=== PATIENT | male | born 1930 | race Caucasian/White ===

== ENCOUNTER 2017-05-30 19:40 | Inpatient (IN) | payer MEDICARE ==
[~2017-05-30 19:40] MED LIST: ISOVUE-370 76%-LOCM 1 ML ONE
[2017-05-30 21:30] LABS: #Lymphocytes 1.1 thou/uL (1.20-3.40); #Monocytes 0.8 thou/uL (0.11-0.59); #Neutrophils 10.7 thou/uL (1.40-6.50); %Basophils 0.2 % (0.0-1.0); %Eosinophils 0.1 % (0.0-10.0); %Lymphocytes 8.7 % (21.0-51.0); %Monocytes 6.5 % (0.0-10.0); %Neutrophils 84.5 % (42.0-75.0); Hemoglobin 14.2 g/dL (14.0-18.0); Mean Corpuscular HGB CONC 32.1 g/dL (32.0-36.0); Mean Corpuscular Hemoglobin 30.7 pg (27.0-31.0); Mean Corpuscular Volume 95.8 fl (80.0-94.0); Platelet Count 176 thou/uL (130-400); RBC Distribution Width 14.1 % (11.5-14.5); Red Blood Cell (RBC) Count 4.62 mill/uL (4.70-6.10); White Blood Cell (WBC) Count 12.7 thou/uL (4.8-10.8)
--- NOTE | 2017-05-30 21:43 | RAD ---
CHEST TWO VIEWS 05/30/17 COMPARISON: 12/25/08, 09/15/16. HISTORY: Cough. Hemoptysis. FINDINGS: There is a left sided defibrillator, unchanged in position. There are sternotomy wires. There is athe rosclerosis of the aorta. Heart is enlarged. Pulmonary vessels are within normal limits. Lungs are hy perinflated. Chronic changes. No consolidation or mass. No pneumothorax or osseous abnormalities. IMPRESSION: 1. Hyperinflation. Chronic changes. 2. Atherosclerosis. POS: [facility]
[2017-05-30 21:46] LABS: ALT (SGPT) 14 U/L (8-55); AST (SGOT) 9 U/L (5-34); Albumin 4.1 g/dL (3.4-4.8); Alkaline Phosphatase 94 U/L (40-150); Anion Gap 15 mmol/L (10-20); BUN (Urea Nitrogen) 20 mg/dL (8.4-25.7); Bilirubin, Total 1.6 mg/dL (0.2-1.2); Calc. Creatinine Clearance 0 mL/min (70-130); Carbon Dioxide 27 mmol/L (23-31); Chloride 102 mmol/L (98-107); Estimated GFR-MDRD 44; Glucose 112 mg/dL (83-110); Potassium 4.1 mmol/L (3.5-5.1); Protein, Total 7.1 g/dL (5.8-8.1); Sodium 140 mmol/L (136-145)
[2017-05-30 21:50] LABS: CKMB 1.5 ng/mL (0-6.6); Troponin I 0.226 ng/mL (< 0.028)
[2017-05-30] MEDS ORDERED: methylPREDNISolone Sod Succ/PF 125 MG/2 ML VIAL ONE (22:28)
[2017-05-30] MEDS ORDERED: diphenhydrAMINE 50 MG/ML VIAL ONE (22:28)
[2017-05-30] MEDS ORDERED: Famotidine/PF 20 mg/2ml Vial ONE (22:29)
[2017-05-30 23:06] LABS: Bilirubin Small (Negative); Blood, Urine Trace (Negative); Clarity CLEAR (Clear); Glucose, Urine (Dipstick) Negative (Negative); Leukocyte Negative (Negative); Nitrite Negative (Negative); Protein, Urine (Dipstick) Trace mg/dL (Neg-Trace); Specific Gravity, Urine 1.021 (1.002-1.036)
[2017-05-30 23:11] LABS: Bacteria/HPF None Seen HPF (None Seen); Hyaline Casts/LPF 4-6 HYALINE CAST LPF (0-3 Hyaline); Pathc Cast-AUWi Flag 0.54 (0-2.49); Squamous Epithelial 0-3 HPF (0-3); WBC/HPF 0-3 HPF (0-3)
[2017-05-30] MEDS ORDERED: HYDROcodone/Acetaminophen 5/325 mg Tablet ONE (23:34)
--- NOTE | 2017-05-30 23:57 | CT ---
HISTORY: Cough. Dark phlegm. Hemoptysis. COMPARISON: None. TECHNIQUE: CT angiogram of the chest performed in the axial plane. Three dimensional reformatted images are subm itted for interpretation. FINDINGS: Trachea and central bronchi are patent. Small right and small to moderate left pleural effusion. Tia cent lung parenchymal changes due to pneumonia or atelectasis.. Calcified granuloma in the right uppe r lobe is noted. Linear opacities in the right upper lobe represent areas of scarring and atelectasis . . There are opacities adjacent to the minor fissure. Largest opacification measures 1.7 cm. There is a more focal opacity in the left lower lobe, measuring 1.3 x 1.9 cm. Malignant process cannot be e xcluded. Comparison with previous examination would be beneficial. Correlation made with a CT from does not definitively include this area. No mediastinal mass, lymphadenopathy or hematoma. Evaluation of the mediastinal structures is limited by beam attenuation artifact due to a left sided defibrillator generator. There are coronary calcifi cations. Heart size is upper normal. There is reflux of contrast into the inferior vena cava due to r ight heart failure. Visualized upper solid organs are unremarkable. Adequate contrast opacification of pulmonary arterial system to the level of the segmental arteries N o filling defect to suggest thromboembolism. No lytic or blastic lesions in the osseous structures. IMPRESSION: 1. No evidence of pulmonary artery embolism to the level of the segmental arteries. 2. Lung parenchymal opacities as above. There is a more focal opacification in the left lower lo be. Infiltrate or mass cannot be excluded. Additional opacities in the middle lobe are present. POS: [facility]
[2017-05-31] MEDS ORDERED: Morphine 4 MG/ML VIAL ONE (00:23)
[2017-05-31] MEDS ORDERED: HYDROcodone/Acetaminophen 7.5/325 mg Tablet PO PRN (00:37)
[2017-05-31] MEDS ORDERED: Ondansetron ODT 4 MG TAB PO PRN ×2 (00:37→18:04)
[2017-05-31 01:39] LABS: Troponin I 0.226 ng/mL (< 0.028)
[2017-05-31 02:59] VITALS: BMI 21.1
[2017-05-31] MEDS ORDERED: Azithromycin 250 MG TAB PO SCH (03:00)
[2017-05-31] MEDS: Cefepime 1 GM, Admixture Fee 1 EACH in Sterile Water 10 ML SLOW IVP SCH ×2 (03:54→15:54)
[2017-05-31] MEDS: Sodium Chloride 0.9% 1,000 ML IV SCH ×3 (03:55→21:18)
[2017-05-31 05:44] LABS: #Lymphocytes 0.8 thou/uL (1.20-3.40); #Monocytes 0.1 thou/uL (0.11-0.59); #Neutrophils 9.8 thou/uL (1.40-6.50); %Basophils 0.3 % (0.0-1.0); %Eosinophils 0.2 % (0.0-10.0); %Lymphocytes 7.4 % (21.0-51.0); %Monocytes 1.3 % (0.0-10.0); %Neutrophils 90.9 % (42.0-75.0); Hemoglobin 13.8 g/dL (14.0-18.0); Mean Corpuscular HGB CONC 31.4 g/dL (32.0-36.0); Mean Corpuscular Hemoglobin 30.3 pg (27.0-31.0); Mean Corpuscular Volume 96.4 fl (80.0-94.0); Mean Platelet Volume 8.3 fL (7.4-10.4); Platelet Count 161 thou/uL (130-400); RBC Distribution Width 14.1 % (11.5-14.5); Red Blood Cell (RBC) Count 4.57 mill/uL (4.70-6.10); White Blood Cell (WBC) Count 10.7 thou/uL (4.8-10.8)
--- NOTE | 2017-05-31 06:04 | HP ---
DATE OF ADMISSION: 05/31/2017 TIME OF SERVICE: 0030 hours. CHIEF COMPLAINT: Coughing up blood. HISTORY OF PRESENT ILLNESS: Mr. Trevino is an 86-year-old white gentleman with history of hypertensio n, chronic low back pain, and arrhythmia, though he does not know which one who presents to the emerg ency department today with complaints of coughing of blood. Patient states that he has had last month or two of clear nasal drainage. Over the last couple of we eks has become darker. He has had several episodes where he has snorted back phlegm and coughed it u p. It has been dark colored. It has gotten darker over the last week and today in nose he has some redness to it. He decided to come to the emergency department for evaluation. He has had some burni ng when he urinates for the last week or so. No fevers or chills, no chest pain, no diarrhea. He is chronically constipated. Patient does have a history of chronic low back pain. Multiple back surgeries in the past. He says he has a bone spur on L5, that caused him to take his hydrocodone at regular intervals. He did miss a dose today and is very uncomfortable at present. He was given morphine sulfate intravenously by [facility] ER doctor. We have been called to admit after CT scan suggested pneumonia versus nodule. PAST MEDICAL HISTORY: 1. Hypertension. 2. Chronic low back pain. 3. Atrial arrhythmia. 4. Probable heart failure. PAST SURGICAL HISTORY: 1. Appendectomy. 2. Neck surgery in the past. 3. Colon resection 18 inches. 4. Pacemaker defibrillator placement. 5. Back surgery x5. HOME MEDICATIONS: 1. Digoxin 0.125 mg p.o. on Sunday, Sunday, and Sunday. 2. Eliquis 2.5 mg p.o. b.i.d. 3. Lasix 40 mg p.o. q.a.m. and every noon. 4. Lorazepam 0.5 mg p.o. p.r.n. 5. Toprol-XL 25 mg daily. 6. MiraLax 17 grams daily. 7. Zofran 4 mg p.o. t.i.d. as needed for nausea. 8. Pantoprazole 40 mg daily. 9. Spironolactone 12.5 mg p.o. daily. 10. Tobramycin 0.3% eyedrops. 11. Hydrocodone q.6 hours, family unsure of the dosage. ALLERGIES: 1. FLOXIN. I am assuming this is OFLOXACIN. 2. IODINE. 3. PENICILLIN back in 1953, was given his intramuscular injection in the service, was told never to take it again as he had to have another medicine to reverse it. 4. PENTAZOCINE/ACETAMINOPHEN, likely the PENTAZOCINE as he takes ACETAMINOPHEN now without problems. FAMILY HISTORY: Negative for clotting or bleeding disorder, no immune dysfunction. SOCIAL HISTORY: Significant for living at the [facility] in [place]. He has negative for habits x 3. He is . His accompanies him. His daughter helps to make medical decisions. Her num bers in the chart. Currently, he wished to be FULL CODE. REVIEW OF SYSTEMS: Ten point review of systems performed and negative for all other systems except s tated as per HPI. PHYSICAL EXAMINATION: VITAL SIGNS: Temperature here is 100.0, pulse 65, blood pressure 136/64, respiratory rate 18, 94% on room air. GENERAL: He is awake. He is alert. He is oriented x3. He is a fidgety thin elderly white male, ap pears to be in no acute distress, but looks uncomfortable. HEENT: Normocephalic and atraumatic. Pupils are equal, reactive bilaterally. Oral membranes are mo ist. He does have dry nasal membranes. I do not see any blood. NECK: Supple. There is no lymphadenopathy, JVD, or thyromegaly. He has normal carotid upstroke. CHEST: Lungs are clear anteriorly. Posteriorly he has some faint basilar crackles that seem to chey r with deep inspiration. He has good air movement. Symmetrical chest excursion. He has no prolonge d expiratory phase. CARDIOVASCULAR: He has a normal cardiac and regular. He has a faint 2-3/6 systolic ejection murmur and a holosystolic murmur. He has a small 2/6 diastolic rumble that is heard at the right upper ster nal border. ABDOMEN: Soft. It is nontender, nondistended. He has good bowel sounds in all 4 quadrants. No deangelo ound, rigidity, or guarding. EXTREMITIES: No cyanosis, no clubbing, no edema. He has a barely palpable dorsalis pedis pulse and nonpalpable posterior tibial. Feet are cool. SKIN: Otherwise, warm, moist, and well perfused without any rashes or lesions. NEUROLOGIC: Cranial nerves II-XII grossly intact, he has no focal deficits, he has normal speech pat tern. Alert and oriented x3. MUSCULOSKELETAL: Normal to inspection. He has no joint inflammation, no palpable effusions. His ba ck is diffusely tender in the lumbar area. He has no deformities. LABORATORY DATA: Sodium 140, potassium 4.1, chloride 102, bicarbonate 27, BUN 20, creatinine 1.51, w hich is at his baseline 1.5 to 1.9. Glucose is 112. Liver functions are normal with the exception o f total bilirubin slightly elevated at 1.6. Total white blood cell count is 12.7 with a normal diffe rential, hemoglobin 14.2, hematocrit 44.3, and platelet count is 176,000. CK-MB is 15, troponin I 0.226, on review this has been in the 0.2 range for the last year. Urinalysi s largely unremarkable. GFR calculated at 44 and a flu test was negative. Chest x-ray showed hyperinflation, but no acute cardiopulmonary disease. A CT angio of the chest marcos wed a small right and a small to moderate left pleural effusion with adjacent atelectasis, right uppe r lobe calcified granuloma, opacities adjacent to the minor fissure, the largest of 1.7 cm and 1.3 x 1.9 left lower lobe opacity. These are consistent with infiltrate and malignancy could not be exclud ed. ASSESSMENT AND PLAN: 1. Hemoptysis: This is not from a lung source. He is sucking that back out of his nasopharynx and spitting it out. We will use humidified air as needed. He is not currently on oxygen. His hemoglob ins are stable. We will watch. 2. Left lower lobe, right parafissure opacities: We will ask Pulmonary to see. Concern is obviousl y malignancy. Patient is not having any overt fevers, he does not have any respiratory issues. I am sure this will be worked up as an outpatient. We will get him plugged in with the lung doctors. 3. Chronic kidney disease 3, GFR of 44 and creatinine 1.5 to 1.9 at baseline. Currently, stable. 4. Possible pneumonia: Now, I think is less likely. He has these nonspecific opacities present. W emil count is slightly elevated at 12.7, he is afebrile with a temperature of 100.0. Watch temperatu re closely. He has gotten OFLOXACIN allergy, he has an old PENICILLIN allergy. I think it is likely not a legitimate, we will treat with cefepime and azithromycin at present so he does live in a long- term assisted living facility and see what pulmonary recommends. Initially, consider sending the pat ient home, however, discussion with the ER doctor, they were concerned about pneumonia to continue to have him admitted. 5. Chronic back pain. We will continue his hydrocodone. We will start him at 7.5 mg q.4 hours and hold for sedation. 6. Hypertension, currently stable. Continue home medications.
[2017-05-31 06:20] LABS: Anion Gap 16 mmol/L (10-20); BUN (Urea Nitrogen) 20 mg/dL (8.4-25.7); Calc. Creatinine Clearance 31 mL/min (70-130); Calcium 9.4 mg/dL (7.8-10.44); Carbon Dioxide 24 mmol/L (23-31); Chloride 102 mmol/L (98-107); Estimated GFR-MDRD 50; Glucose 121 mg/dL (83-110); Potassium 3.9 mmol/L (3.5-5.1); Sodium 138 mmol/L (136-145)
[2017-05-31] MEDS: Famotidine 20 MG TAB PO SCH (08:49)
[2017-05-31] MEDS ORDERED: Cefepime 1 GM in Sodium Chloride 0.9% 100 ML IVPB SCH (09:00)
[2017-05-31] MEDS: HYDROcodone/Acetaminophen 7.5/325 mg Tablet PO PRN (17:49)
[2017-05-31] MEDS ORDERED: traMADol HCl 50 MG TAB PO PRN (18:04)
[2017-05-31 19:43] LABS: Troponin I 0.243 ng/mL (< 0.028)
[2017-05-31] MEDS ORDERED: Atorvastatin Calcium 20 MG TAB PO SCH (21:00)
[2017-05-31] MEDS: Lorazepam 1 MG TAB PO SCH (21:19)
[2017-05-31] MEDS: Polyethylene Glycol 3350 17 GM Packet PO SCH (21:19)
[2017-05-31] MEDS: Furosemide 40 MG TAB PO SCH (21:19)
[2017-05-31] MEDS: Cefdinir 300 MG CAP PO SCH (21:19)
[2017-05-31] MEDS: Mirtazapine 15 MG TAB PO SCH (21:20)
[2017-05-31] MEDS: HYDROcodone/Acetaminophen 10/325 mg Tablet PO SCH (21:20)
--- NOTE | 2017-06-01 01:47 | CON ---
DATE OF CONSULTATION: 05/31/2017 Mr. Trevino is a gentleman who has a history of mitral regurgitation, left atrial enlargement, and aortic insufficiency. He gives a fairly tangential history, but presents with sinus drainage and hemoptysis. He feels this sinus drainage is leading to the hemoptysis. He wanted an emergency room evaluation since he lives in an assisted living environment. He says he is not sure he gets the medicine he is supposed to get , so he was transferred here and admitted. PAST MEDICAL HISTORY: Remarkable for hypertension, chronic pain, which he is very fixated on and talks about his pain medicine continuously during the interview; history of valvular heart disease. PAST SURGICAL HISTORY: 1. History of an appendectomy. 2. History of neck surgery. 3. History of colon surgery. 4. History of placement of an AICD. 5. History of multiple back surgeries. He is on Eliquis, digoxin, Lasix, lorazepam, Toprol, MiraLax, Zofran, Protonix, spironolactone, and hydrocodone. He reports allergies to QUINOLONES, IODINE, PENICILLIN and PENTAZOCINE reportedly. FAMILY HISTORY: Negative for lung disease at an early age. SOCIAL HISTORY: Denies smoking. He said he very briefly smoked earlier in his life, did not drink. Has no drug history. REVIEW OF SYSTEMS: Otherwise, 10-point negative. He denies specifically chest pain, orthopnea, paroxysmal nocturnal dyspnea, had no diarrhea with this illness. He says his sinus drainage has been going on for several weeks. PHYSICAL EXAMINATION: VITAL SIGNS: He is afebrile, heart rate 66, respiratory rate 16, oximetry is 94 %. Blood pressure 137/69. HEENT: Pupils are reactive. Sclerae is anicteric. NECK: Supple, no lymphadenopathy. LUNGS: Remarkable for clear breath sounds. HEART: Regular rhythm. S1 and S2 are normal. He has a grade 3/6 systolic precordial murmur. His murmurs are less intense in his right upper sternal border. ABDOMEN: Soft and nontender. He has no guarding. He has no organomegaly. EXTREMITIES: Without asymmetry. LABORATORY DATA: White count 10.7, hemoglobin 13.8, platelets 161. Sodium 138 , potassium 3.9, chloride 102, bicarb 24, BUN 20, creatinine 1.35. I reviewed his chest radiographs and his chest CT. I believe he has fluid in is minor fissure. He has bibasilar atelectasis adjacent to right greater than left pleural effusion. IMPRESSION: 1. Probable chronic congestive heart failure secondary to valvular heart disease. 2. Sinusitis versus rhinitis with hemoptysis. 3. Deconditioning. PLAN: I would provide antimicrobial therapy. I would consult Cardiology since he is followed by Dr. Haq here in town. I think a repeat echocardiogram just to reassess his valvular function just mainly to notify family of his condition is reasonable. I do not think that he should be a full code at 86 years of age with valvular heart disease, but he is. As we collect the information, this can be addressed. I have discussed the above with the staffing administrator patient relations liaison. This is a 50-minute consultation, greater than 50% of the time was spent reviewing available old records, reviewing radiographs and consulting with the staff planning care. ZAC
[2017-06-01] MEDS: Calcium Carbonate + Vit D 1 TAB PO SCH (08:14)
[2017-06-01] MEDS: Famotidine 20 MG TAB PO SCH (08:15)
[2017-06-01] MEDS: Amiodarone 200 MG TAB PO SCH (08:15)
[2017-06-01] MEDS: Furosemide 40 MG TAB PO SCH (08:15)
[2017-06-01] MEDS: Cefdinir 300 MG CAP PO SCH ×2 (08:16→21:04)
[2017-06-01] MEDS: HYDROcodone/Acetaminophen 10/325 mg Tablet PO SCH ×4 (08:25→21:05)
[2017-06-01] MEDS: Sodium Chloride 0.9% 1,000 ML IV SCH (08:28)
[2017-06-01] MEDS ORDERED: Azithromycin 250 MG TAB PO SCH (09:00)
[2017-06-01] MEDS ORDERED: Digoxin 0.125 MG TAB PO SCH (09:00)
--- NOTE | 2017-06-01 09:29 | PRG ---
DATE OF SERVICE: 06/01/2017 SUBJECTIVE: The patient seen and examined at the bedside. He wants to go home. He talks a lot abou t his medications, his hydrocodone. He is not taking his hydrocodone for the last 3 days like he is supposed to, although he is using hydrocodone in the hospital as we speak. He is very fixated on his medications issue. OBJECTIVE: VITAL SIGNS: Blood pressure is 164/78, pulse is 61, respiratory rate is 16, O2 saturation is 91% on 3 liters by nasal cannula. HEENT: His head is atraumatic, normocephalic. Eyes are PERRLA, conjunctivae pinkish. Oral mucosa i s moist. NECK: Supple. LUNGS: Breath sounds diminished at both bases. CARDIOVASCULAR: S1, S2 normal, no S3, S4, defibrillator in place. ABDOMEN: Soft, nontender, nondistended. EXTREMITIES: No clubbing, cyanosis or edema. NEUROLOGIC: He is alert and oriented x4. There is not any sensory or motor deficits. Cranial nerve s are intact. LABORATORY DATA: Showed BNP of 1738.9. IMPRESSION: 1. Hemoptysis. Most likely related to his sinus versus rhinitis per Dr. Duran. His cefepime was sw itched to Omnicef and he is continued on azithromycin. 2. Hypoxemia with respiratory distress on exertion, most likely congestive heart failure. We are go ing to switch his Lasix to IV 40 mg q.12h. We will stop his fluids. His BNP is elevated. We will tr y to diurese him. 3. Hypertension, chronic. The patient is back on his home meds. 4. Defibrillator. PLAN: Plan is as mentioned above, Cardiology consultation was requested by career technology teacher since his t roponin is up to 0.2. This could be a demand ischemia or non-STEMI. The patient is getting beta blo cker, metoprolol 12.5 mg twice a day. Will start him on aspirin 325 mg daily. He had echocardiogram done this morning, will have results later today. We will continue him on amiodarone he was taking at home, the same dose 200 mg daily, and we will continue digoxin. We will obtain more information f rom Dr. James since the patient is established with Dr. Haq as the primary Cardiology Service.
[2017-06-01] MEDS ORDERED: Furosemide 40 MG/4 ML VIAL SLOW IVP SCH (10:00)
--- NOTE | 2017-06-01 12:24 | PRG ---
DATE OF SERVICE: 06/01/2017 Mr. Trevino is stable overnight. He is in no distress. He is oriented x2. PHYSICAL EXAMINATION: VITAL SIGNS: He is afebrile, heart rate 61, respiratory rate 16, oximetry is 91 on 3 liters, blood p ressure 164/78. His echocardiogram is pending. LUNGS: Remarkable for decreased breath sounds at both bases. CARDIOVASCULAR: Regular rhythm. ABDOMEN: Soft. IMPRESSION: 1. Valvular heart disease, accounting for the majority of his radiographic findings. 2. ? Pneumonia. I suspect he does not have a pneumonia. It would not be unreasonable to switch hi m to p.o. antimicrobial therapy at this point. I have discontinued his IV azithromycin. I doubt thi s is an atypical pneumonia. We will continue to follow.
--- NOTE | 2017-06-01 14:05 | CON ---
DATE OF CONSULTATION: 06/01/2017 HISTORY OF PRESENT ILLNESS: The patient is an 86-year-old gentleman who presented with dyspnea and a sinus infection. The patient has a long history of ischemic cardiomyopathy. He underwent coronary bypass graft surgery x4 in 2002. He also had subsequent placement of automatic implantable cardiac defibrillator. The patient also has a history of atrial fibrillation/flutter and is on chronic anticoagulation therapy. The patient also has had difficulty with blood pressure medications and has a history of orthostatic hypotension. The patient states for the past few months he has had difficulty with back pain and with adjustments of his pain medication. He also has noted a slight increase in dyspnea and primarily has noted sinus drainage which is sometimes blood tinged. The patient denies having any chest discomfort. The patient denies having any PND or orthopnea. PAST MEDICAL HISTORY: 1. Ischemic cardiomyopathy. 2. History of atrial fibrillation/flutter. 3. History of renal insufficiency. 4. Chronic back pain. PAST SURGICAL HISTORY:Hernia repair, vasectomy, cholecystectomy, coronary bypass graft surgery and prostate surgery. SOCIAL HISTORY: Nonsmoker. MEDICATIONS: See nursing list. ALLERGIES: PENICILLIN, FLOXIN, IODINE. REVIEW OF SYSTEMS: Noticeable for weight loss, no bright red blood per rectum, hematuria. PHYSICAL EXAMINATION: GENERAL: This is a thin gentleman in no acute distress. VITAL SIGNS: Blood pressure of 156/71. NECK: Full. LUNGS: Coarse breath sounds bilateral. HEART: Regular rate and rhythm, normal S1, S2 with 3/6 systolic murmur heard at the apex. ABDOMEN: Nondistended. EXTREMITIES: Showed trace bilateral edema. SKIN: Warm and dry. NEUROLOGIC: Nonfocal. VASCULAR: Radial pulses 2+. LABORATORY DATA: Sodium 138, potassium 3.9, chloride 102, bicarbonate 24, BUN 20, creatinine is 1.35. Troponin is 0.243. BNP was 1738. His EKG revealed an electronic dual chamber pacemaker. IMPRESSION: 1. Dyspnea, probably secondary to congestive heart failure. 2. Sinusitis. 3. History of ischemic cardiomyopathy. 4. History of coronary bypass surgery x4. 5. History of AICD placement. 6. Renal insufficiency. 7. History of mitral regurgitation. 8. History of atrial fibrillation/flutter. 9. History of orthostatic hypotension. This gentleman presented with sinusitis and back pain. He has mild congestive heart failure. He is on appropriate medications. The patient will be restarted on Apixaban. Will check the patient's echocardiogram to evaluate for valvular heart disease. We will follow this patient with you through his hospitalization. ZAC
[2017-06-01] MEDS: HYDROcodone/Acetaminophen 7.5/325 mg Tablet PO PRN (14:58)
[2017-06-01] MEDS: Furosemide 40 MG/4 ML VIAL SLOW IVP SCH (14:58)
[2017-06-01] MEDS ORDERED: Atorvastatin Calcium 40 MG TAB PO SCH (21:00)
[2017-06-01] MEDS: Apixaban 5 MG TAB PO SCH (21:04)
[2017-06-01] MEDS: Lorazepam 1 MG TAB PO SCH (21:05)
[2017-06-01] MEDS: Mirtazapine 15 MG TAB PO SCH (21:06)
[2017-06-01] MEDS: Polyethylene Glycol 3350 17 GM Packet PO SCH ×2 (21:12→21:22)
[2017-06-02] MEDS: Furosemide 40 MG/4 ML VIAL SLOW IVP SCH ×2 (06:26→13:49)
[2017-06-02] MEDS: Apixaban 5 MG TAB PO SCH (08:42)
[2017-06-02] MEDS: Calcium Carbonate + Vit D 1 TAB PO SCH (08:42)
[2017-06-02] MEDS: Amiodarone 200 MG TAB PO SCH (08:43)
[2017-06-02] MEDS: Cefdinir 300 MG CAP PO SCH (08:44)
[2017-06-02] MEDS: Famotidine 20 MG TAB PO SCH (08:44)
[2017-06-02] MEDS: HYDROcodone/Acetaminophen 10/325 mg Tablet PO SCH ×3 (08:44→17:59)
[2017-06-02] MEDS ORDERED: Aspirin 325 MG TAB PO SCH (09:00)
[2017-06-02 16:32] VITALS: BP 125/65; TEMP 97.8
--- NOTE | 2017-06-03 06:29 | DIS ---
DATE OF ADMISSION: 05/31/2017 DATE OF DISCHARGE: 06/02/2017 FINAL DIAGNOSES AT THE TIME OF DISCHARGE: 1. Hemoptysis, most likely related to sinusitis. 2. Dyspnea, most likely secondary to congestive heart failure. 3. History of ischemic cardiomyopathy. 4. History of coronary bypass surgery x4. 5. History of AICD placement. 6. Renal insufficiency. 7. History of mitral regurgitation. 8. History of atrial fibrillation/flutter. 9. History of orthostatic hypotension. CONSULTANTS: Supervisor [facility], Dr. Duran. DISPLAY DECORATOR: Dr. James. IMAGES: Chest x-ray showed hyperinflation, chronic changes and atherosclerosis. CT angiogram of the chest showed: 1. No evidence of PE. 2. Lung parenchymal opacities, more focal opacification in the left lower lobe infiltrate or mass ca nnot be excluded. Additional opacities in the middle lobe were present. 3. Echocardiogram, ejection fraction visually estimated at 50% to 65%. The left atrium is moderatel y to severely dilated, moderately large right atrium size, left ventricular size is normal. Severe m itral regurgitation is present. Mild aortic regurgitation is noted. Severe tricuspid regurgitation, right ventricular systolic pressure was markedly elevated and the pacer wire was visualized in the r ight ventricle. HOSPITAL COURSE: The patient was an 86-year-old male with history of hypertension, chronic low back pain and arrhythmia, who presented to the emergency room department with complaints of coug christian of blood. Apparently a month prior to this emergency room visit, he has some clear nasal draina ge and over the last couple of weeks, it became darker and he had several episodes where he has snort ed back phlegm and coughed it up, it has been dark colored and showed some redness in it. He had iam e burning when he was urinating for the last week or so, there was no fever or chills, no chest pain, no diarrhea. He is chronically constipated. This emergency room evaluation showed normal electroly sarah, creatinine of 1.51 with baseline of 1.5-1.9. Liver function test was normal with exception for total bilirubin was slightly elevated at 1.6. White blood cell count was 12.7 with normal differenti al, hemoglobin 14.2, hematocrit 44.3, platelet count was 176,000. CK-MB was 15, troponin was 0.226. On review, troponins were in 0.2 range for the last year prior to this hospitalization. Urinalysis was largely unremarkable. Chest x-ray show hyperinflation, no acute cardiopulmonary disease and CT a ngiogram showed a small right and small to moderate left pleural effusion with adjacent atelectasis, right upper lobe calcified granuloma opacities adjacent to the minor fissure. The largest was of 1.7 and 1.3 x 1.9 left lower lobe opacity. The patient was admitted to the hospital for further evaluat ion with working diagnosis of hemoptysis. The patient was seen by furniture packer, Dr. Duran, who felt that this was most likely related to his sinuses. He recommended to further evaluation by Cardiolog y since there was some evidence of chronic congestive heart failure and secondary to valvular heart d isease. The patient was seen by Dr. James who was covering for Dr. Haq and echocardiogram was performed, which showed multiple bowel insufficiencies. Primer Inserting Machine Operator felt that the patient was on go od regimen on his meds. He just added apixaban since apixaban was started at the time of admission, secondary to his hemoptysis. The patient clinically did well. He did not have any significant issue s in this hospitalization. He was diuresed with IV Lasix. PHYSICAL EXAMINATION: VITAL SIGNS: Now blood pressure 125/65, respiratory rate is 18, pulse 63, temperature is 97.8 and O2 saturation is 92% on room air. GENERAL: He is not in any distress even when he ambulates. LUNGS: Showed few crackles at both bases. No wheezing. HEART: S1, S2 normal. No S3, no S4. ABDOMEN: Soft, nontender, bowel sounds are present, no organomegaly. EXTREMITIES: No clubbing, cyanosis. There is 1+ peripheral edema similar bilaterally. DISPOSITION: The patient is discharged home in good condition. MEDICATIONS: He was placed on antibiotic, on Omnicef and he is going to continue Omnicef 300 mg twic e a day for additional 7 days for possible sinusitis, also his other medications at the time of disch arge, Apixaban 2.5 mg twice a day, amiodarone 200 mg daily, calcium carbonate with vitamin D3, 600/12 5 one table a day, digoxin 0.125 mg once a day, hydrocodone/acetaminophen 1 tablet 10/325 mg 4 times a day. Also, he will take lorazepam 0.5 mg at bedtime, metoprolol succinate 12.5 mg daily, mirtazapi ne 15 mg at bedtime, Naloxegol which is Movantik 12.5 mg tablets once a day, pantoprazole 40 mg at be dtime, polyethylene glycol 17 grams once a day, atorvastatin 20 mg at bedtime, furosemide 40 mg twice a day. FOLLOWUP: He is going to follow up with his primary care physician, Dr. Garsia in [place] in [address] Haq in 2-4 weeks. The patient was seen and examined before he was discharged. Discharge time is less than 30 minutes.
--- NOTE | 2017-06-11 17:59 | PQF ---
FARRUKH BRYANT ZBIGNIEW A MD [id number] SURG A- [id number] CLINICAL DOCUMENTATION CLARIFICATION FORM: POST DISCHARGE Please clarify documented "Congestive Heart Failure" can be further specified by type and acuity. Please check appropriate box(s): HEART FAILURE: A. TYPE: [ ] Systolic / HFrEF [ ] Diastolic / HFpEF [ ] Combined Systolic / Diastolic B. ACUITY [ ] Acute [ ] Acute on Chronic [ ] Chronic C. WITH (if appropriate) [ ] Hypertensive Heart Disease [ ] Hypertensive Heart and Kidney Disease [ ] Other diagnosis [ ] Unable to determine In addition, please specify: Present on Admission (POA): [ ] Yes [ ] No [ ] Unable to determine DC SUMMARY; 'Dyspnea, most likely secondary to Congestive Heart Failure.' 'He was diuresed with IV Lasix.' PN 06/01; 'Hypoxemia with respiratory distress on exertion, most likely Congestive Heart Failure. Switch his Lasix to IV 40 mg q. 12h.' LAB; BNP 1738 ECHO; 'left atrium moderately to severely dilated, moderately large right atrium size, left ventriculare size is normal. Right ventricular systolic pressure was markedly elevated. Severe mitral regurgitation. Mild aortic regurgitation. Sever tricuspid regurgitation.' Please exercise your independent, professional judgment in responding to the clarification form. Clinical indicators are provided on the bottom of this form for your review. Thank you. CLINICAL INDICATORS - SIGNS / SYMPTOMS / LABS Ejection Fraction =__50 - 65____ % Dyspnea, Hypoxia Peripheral edema Elevated BNP 1738.9 Valvular insufficiencies Hypoxemia Respiratory distress Pleural effusion RISKS: History of CAD/ ischemic heart disease CKD III CABG Hypertension AICD TREATMENTS: Administration of [employer] / ARB / BB Cardiac monitoring / telemetry IV diuretics Oxygen ECHO (This form is maintained as a part of the permanent medical record) 2014 [employer] All Rights Reserved [email or web address] [phone] ZAC
== END 2017-06-02 18:50 | DRG 204 ==
LOC: ERS 19:40 → SURG A 05-31 00:31 → OBSVTOIN 05-31 14:02
PROVIDERS: ADMIT Internal Medicine Infectious Disease; ATTEND Internal Medicine Infectious Disease
DX: R04.2 Hemoptysis (principal); R06.03 Acute respiratory distress; I24.8 Other forms of acute ischemic heart disease; I08.3 Combined rheumatic disorders of mitral, aortic and tricuspid valves; I13.0 Hypertensive heart and chronic kidney disease with heart failure and stage 1 through stage 4 chronic kidney disease, or unspecified chronic kidney disease; I48.91 Unspecified atrial fibrillation; I25.5 Ischemic cardiomyopathy; R09.02 Hypoxemia; J32.9 Chronic sinusitis, unspecified; N18.3 Chronic kidney disease, stage 3 (moderate); Z95.1 Presence of aortocoronary bypass graft; I25.10 Atherosclerotic heart disease of native coronary artery without angina pectoris; Z95.810 Presence of automatic (implantable) cardiac defibrillator; Z79.01 Long term (current) use of anticoagulants; G89.29 Other chronic pain; K59.00 Constipation, unspecified; M46.06 Spinal enthesopathy, lumbar region
CPT/HCPCS: 36415; 71046; 71275; 80048; 80053; 81003; 81015; 82553; 83880; 84484; 85025; 87040; 87077; 87149; 87186; 93005; 93306; 96365; 96375; A4216; J0692; J1200; J1940; J2270; J2930; J3370; S0028

== ENCOUNTER 2017-08-23 15:40 | Emergency (ER) | payer MEDICARE ==
[2017-08-23 16:23] LABS: Bilirubin Negative (Negative); Blood, Urine Negative (Negative); Clarity CLEAR (Clear); Glucose, Urine (Dipstick) Negative (Negative); Leukocyte Negative (Negative); Nitrite Negative (Negative); Protein, Urine (Dipstick) Negative (Neg-Trace); Specific Gravity, Urine 1.009 (1.002-1.036); Urobilinogen 0.2 mg/dL (0.2-1.0); pH, Urine 7.5 (5.0-9.0)
[2017-08-23 16:31] LABS: #Monocytes 0.4 thou/uL (0.11-0.59); %Basophils 0.1 % (0.0-1.0); %Eosinophils 0.3 % (0.0-10.0); %Lymphocytes 13.2 % (21.0-51.0); %Monocytes 5.5 % (0.0-10.0); %Neutrophils 80.9 % (42.0-75.0); Hemoglobin 12.8 g/dL (14.0-18.0); Mean Corpuscular HGB CONC 31.2 g/dL (32.0-36.0); Mean Corpuscular Hemoglobin 25.9 pg (27.0-31.0); Mean Corpuscular Volume 82.9 fl (80.0-94.0); Mean Platelet Volume 7.9 fL (7.4-10.4); Platelet Count 182 thou/uL (130-400); RBC Distribution Width 14.4 % (11.5-14.5); Red Blood Cell (RBC) Count 4.94 mill/uL (4.70-6.10); White Blood Cell (WBC) Count 7.5 thou/uL (4.8-10.8)
[2017-08-23 16:49] LABS: ALT (SGPT) 16 U/L (8-55); AST (SGOT) 12 U/L (5-34); Albumin 4.5 g/dL (3.4-4.8); Alkaline Phosphatase 79 U/L (40-150); Anion Gap 11 mmol/L (10-20); BUN (Urea Nitrogen) 24 mg/dL (8.4-25.7); Bilirubin, Total 1.6 mg/dL (0.2-1.2); CK (CPK) 75 U/L (30-200); Calc. Creatinine Clearance 0 mL/min (70-130); Calcium 9.8 mg/dL (7.8-10.44); Carbon Dioxide 32 mmol/L (23-31); Chloride 97 mmol/L (98-107); Estimated GFR-MDRD 40; Globulin 2.5 g/dL (2.4-3.5); Glucose 109 mg/dL (83-110); Potassium 4.3 mmol/L (3.5-5.1); Sodium 136 mmol/L (136-145)
[2017-08-23 16:52] LABS: CKMB 3.5 ng/mL (0-6.6); Troponin I 0.212 ng/mL (< 0.028)
[2017-08-23] MEDS ORDERED: Morphine 4 MG/ML VIAL ONE ×2 (17:38→19:19)
[2017-08-23 18:42] LABS: Troponin I 0.228 ng/mL (< 0.028)
--- NOTE | 2017-08-23 19:02 | RAD ---
SINGLE VIEW OF THE CHEST: 08/23/17 COMPARISON: 09/15/16 HISTORY: Chronic back pain with multiple surgeries in the past. FINDINGS: Single view of the chest shows an enlarged cardiomediastinal silhouette. The patient is status post CABG. The patient is status post sternotomy. A pacemaker is unchanged in position. There is no eviden ce of consolidation, mass, or pleural effusion. IMPRESSION: Cardiomegaly without evidence of acute cardiopulmonary disease. POS: [facility]
[2017-08-23] MEDS ORDERED: Furosemide 20 MG/2 ML VIAL ONE (19:19)
--- NOTE | 2017-08-23 20:59 | CT ---
CT OF THE ABDOMEN AND PELVIS WITHOUT CONTRAST: 08/23/17 COMPARISON: 09/15/16 HISTORY: Chronic back pain with multiple surgeries in the past. Patient has acute on chronic pain in the back and abdominal pain. TECHNIQUE: Multiple contiguous axial images were obtained in a CT of the abdomen and pelvis without contrast. Co trish reformats were performed. FINDINGS: There are hypodensities in the bilateral kidneys measuring up to 4.2 cm in size which likely represen ts cysts. There are hyperdensities emanating from the right kidney that are stable compared to the pr ior examination and may represent hyperdense cysts. The largest measures 1.4 cm in size. Streak artif act from the patient's spinal hardware limits evaluation of these hyperdense cysts. The gallbladder h as been removed. The liver, adrenal glands, spleen, and pancreas are unremarkable, although evaluatio n is limited without IV contrast. The large and small bowel are unremarkable. There is a small amount of ascites. Atherosclerotic calci fications are seen in the aorta. No abdominal or pelvic lymphadenopathy are seen. There are trace bilateral pleural effusions with adjacent atelectasis. Degenerative changes and posts urgical changes are seen in the spine. The abdominal wall soft tissues are unremarkable. IMPRESSION: 1. Ascites. 2. Bilateral renal cysts. POS: [facility]
--- NOTE | 2017-09-01 22:58 | EKG ---
Test Reason : PAIN Blood Pressure : / mmHG Vent. Rate : 060 BPM Atrial Rate : 045 BPM P-R Int : 000 ms QRS Dur : 158 ms QT Int : 508 ms P-R-T Axes : 000 -48 072 degrees QTc Int : 508 ms AV dual-paced rhythm Abnormal ECG Confirmed by NEAL RAMÍREZ, JESSIE ([id number]), scientific editor SABRINA WILLS ([id number] on 09/01/2017 10:58:02 PM Referred By: Confirmed By:JESSIE DE JESUS MD
== END 2017-08-23 19:20 | disposition home or self-care (01) ==
LOC: ERS 15:40
DX: M54.5 Low back pain (principal); G89.29 Other chronic pain; I11.0 Hypertensive heart disease with heart failure; I50.9 Heart failure, unspecified; E78.2 Mixed hyperlipidemia; Z79.01 Long term (current) use of anticoagulants; Z79.899 Other long term (current) drug therapy
CPT/HCPCS: 36415; 71045; 74176; 80053; 81003; 82553; 83880; 84484; 85025; 93005; 96374; 96375; 96376; J1940; J2270

== ENCOUNTER 2017-09-17 15:31 | Observation (INO) | payer MEDICARE ==
[2017-09-17 16:13] LABS: #Lymphocytes 1.2 thou/uL (1.20-3.40); #Monocytes 0.5 thou/uL (0.11-0.59); #Neutrophils 5.9 thou/uL (1.40-6.50); %Basophils 0.2 % (0.0-1.0); %Eosinophils 0.4 % (0.0-10.0); %Lymphocytes 15.1 % (21.0-51.0); %Monocytes 6.8 % (0.0-10.0); %Neutrophils 77.5 % (42.0-75.0); Hemoglobin 12.7 g/dL (14.0-18.0); Mean Corpuscular HGB CONC 31.7 g/dL (32.0-36.0); Mean Corpuscular Hemoglobin 26.6 pg (27.0-31.0); Mean Corpuscular Volume 83.8 fl (80.0-94.0); Mean Platelet Volume 7.6 fL (7.4-10.4); Platelet Count 165 thou/uL (130-400); RBC Distribution Width 17.4 % (11.5-14.5); Red Blood Cell (RBC) Count 4.78 mill/uL (4.70-6.10); White Blood Cell (WBC) Count 7.7 thou/uL (4.8-10.8)
[2017-09-17 16:19] LABS: INR-International Normal Ratio 1.4; PTT 39.9 SEC (22.9-36.1); Prothrombin Time 17.7 SEC (12.0-14.7)
[2017-09-17 16:35] LABS: ALT (SGPT) 15 U/L (8-55); AST (SGOT) 11 U/L (5-34); Albumin 4.3 g/dL (3.4-4.8); Alkaline Phosphatase 82 U/L (40-150); Anion Gap 14 mmol/L (10-20); BUN (Urea Nitrogen) 27 mg/dL (8.4-25.7); Bilirubin, Total 1.2 mg/dL (0.2-1.2); CK (CPK) 53 U/L (30-200); Calc. Creatinine Clearance 0 mL/min (70-130); Calcium 9.4 mg/dL (7.8-10.44); Carbon Dioxide 30 mmol/L (23-31); Chloride 98 mmol/L (98-107); Estimated GFR-MDRD 38; Globulin 2.4 g/dL (2.4-3.5); Glucose 99 mg/dL (83-110); Potassium 3.9 mmol/L (3.5-5.1); Protein, Total 6.7 g/dL (5.8-8.1); Sodium 138 mmol/L (136-145)
[2017-09-17] MEDS ORDERED: Pantoprazole 40 MG VIAL ONE (17:42)
[2017-09-17 18:20] LABS: Digoxin 1.31 ng/mL (0.8-2.0)
[2017-09-17 19:36] LABS: CKMB 2.6 ng/mL (0-6.6); Troponin I 0.192 ng/mL (< 0.028)
[2017-09-17] MEDS ORDERED: Acetaminophen 325 MG TAB PO PRN (20:14)
[2017-09-17] MEDS ORDERED: Ondansetron ODT 4 MG TAB SL PRN (20:14)
[2017-09-17] MEDS ORDERED: HYDROcodone/Acetaminophen 5/325 mg Tablet PO PRN (20:14)
[2017-09-17] MEDS ORDERED: Ondansetron HCl/PF 4 MG/2 ML Vial IVP PRN (20:14)
[2017-09-17] MEDS: HYDROcodone/Acetaminophen 5/325 mg Tablet PO PRN (21:33)
[2017-09-17 22:05] LABS: Hemoglobin 12.3 g/dL (14.0-18.0)
[2017-09-17 22:47] VITALS: BMI 21.0
[2017-09-18] MEDS ORDERED: Non-Formulary Item 1 EACH (Ondansetron Hcl [Zofran] 4 MG) PO PRN (00:15)
[2017-09-18] MEDS ORDERED: Polyethylene Glycol 3350 17 GM Packet PO PRN (00:15)
[2017-09-18] MEDS ORDERED: Temazepam 15 MG CAP PO PRN (00:15)
[2017-09-18] MEDS ORDERED: HYDROcodone/Acetaminophen 10/325 mg Tablet PO PRN (00:15)
[2017-09-18] MEDS ORDERED: traMADol HCl 50 MG TAB PO PRN (00:15)
[2017-09-18] MEDS ORDERED: Sodium Chloride 0.9% 1,000 ML IV SCH (00:30)
--- NOTE | 2017-09-18 02:03 | HP ---
PRIMARY CARE PHYSICIAN: Keith Garsia MD PRESENTING COMPLAINT: Dark stools. HISTORY OF PRESENT ILLNESS: Mr. Uriel Rowan is an 86-year-old male with a past medical history of hypertension, atrial arrhythmias, chronic back pain who presented to the emergency room with a 3-day history of dark tarry stools. The patient is on multiple pain medications for chronic back pain and also takes Eliquis, amiodarone, and metoprolol for an arrhythmia. He reports he has had multiple episodes of dark stools with 3 episodes, today stools are dark ( almost black) and sticky. There is no history of nausea, vomiting, abdominal pain. He reports no dizziness or loss of consciousness. He has had previous bleeding episodes on which he had hemoptysis. No history of fever, chills, chest pain, cough, shortness of breath. PAST SURGICAL HISTORY: Five back surgeries, AICD placement, appendectomy, neck surgery, colon resection. FAMILY HISTORY: Reviewed and noncontributory. SOCIAL HISTORY: Does not drink alcohol, smoke cigarettes, or use illicit drugs. ALLERGIES: PENICILLIN, IODINE, PENTAZOCINE, and OFLOXACIN. HOME MEDICATIONS: Furosemide 80 mg daily; metoprolol succinate 12.5 mg at bedtime; pantoprazole 40 mg daily; amiodarone 200 mg daily; apixaban 2.5 mg b.i.d.; atorvastatin 20 mg at bedtime; calcium carbonate/vitamin D/vitamin K1 one tablet q.a.m.; digoxin 125 mcg on Mondays, Wednesdays, and Fridays; ferrous sulfate 325 mg daily; hydrocodone/acetaminophen 1 tablet q.4 hours p.r.n., Naloxegol Oxalate 12.5 mg daily, ondansetron, hydrochloride 4 mg q.8 hours p.r.n., MiraLax 17 grams daily, temazepam 15 mg at bedtime, tramadol 50 mg t.i.d. p.r.n. for pain. REVIEW OF SYSTEMS: A 12-point review of systems conducted and negative except as stated in the HPI. PHYSICAL EXAMINATION: VITAL SIGNS: Temperature 97.9 degree Fahrenheit, pulse rate 63, respiratory rate 20, oxygen saturation 97% on room air, blood pressure 133/71. GENERAL: Not in acute distress, sitting comfortably in bed. HEENT: Normocephalic, atraumatic. Not pale, anicteric. Moist mucous membranes. PERRLA, EOMI. NECK: Supple, full range of movement. RESPIRATORY: Vesicular breath sounds bilaterally. No wheezes, rales, or rhonchi. CARDIOVASCULAR: Regular rate, irregular rhythm. S1, S2 only. No murmurs, rubs , or gallops. ABDOMEN: Soft, nontender, nondistended. Bowel sounds normoactive. No hepatosplenomegaly. NEUROLOGIC: Alert and well oriented. No focal deficits. MUSCULOSKELETAL: No edema. SKIN: Warm, dry, well-perfused. No rashes or lesions. PSYCHIATRIC: Normal mood and affect. LABORATORY DATA: CBC was largely unremarkable with present hemoglobin of 12.7, INR was 1.4 with aPTT of 39.9. Serum chemistry with BUN/creatinine of 27/1.69 ( the patient has acute on chronic kidney disease and seems to be at his baseline) . Troponin 0.192. BNP 1034. Guaiac test positive. ASSESSMENT AND PLAN: 1. Upper gastrointestinal bleed: The patient presented with history of dark tarry stools and guaiac test positive in the emergency room. His vital signs are stable and he has been admitted for further management. He has been started on gentle hydration, made n.p.o. GI has been consulted. He has also been started on IV Protonix drip. Blood has been typed and screened for possible transfusion as well. We will trend his hemoglobin and monitor vital signs closely. He might require endoscopy in the morning. 2. History of atrial arrhythmia: He is currently rate controlled. We will hold Eliquis, but continue him on his amiodarone. Metoprolol also held due to gastrointestinal bleed. Vital signs to be monitored closely. 3. Hypertension. Blood pressure is currently at goal. We will monitor blood pressure and restart his home medications as blood pressure permits. 4. Chronic lower back pain: The patient is stable and at his baseline. We will resume his home medications, but avoid NSAIDs due to gastrointestinal bleed. 5. Chronic kidney disease: The patient seems to be at his baseline. We will monitor renal function closely. 6. Elevated troponin, likely due to chronic kidney disease. He is chest pain free and has no cardiac complaints. We will trend troponins. [facility]
[2017-09-18] MEDS: HYDROcodone/Acetaminophen 5/325 mg Tablet PO PRN ×4 (04:18→23:07)
[2017-09-18 04:42] LABS: #Eosinphils 0.1 thou/uL (0.0-0.7); #Lymphocytes 1.3 thou/uL (1.20-3.40); #Monocytes 0.5 thou/uL (0.11-0.59); #Neutrophils 3.6 thou/uL (1.40-6.50); %Basophils 0.4 % (0.0-1.0); %Eosinophils 1.1 % (0.0-10.0); %Lymphocytes 23.8 % (21.0-51.0); %Monocytes 8.5 % (0.0-10.0); %Neutrophils 66.2 % (42.0-75.0); Hemoglobin 12.3 g/dL (14.0-18.0); Mean Corpuscular HGB CONC 31.1 g/dL (32.0-36.0); Mean Corpuscular Hemoglobin 26.4 pg (27.0-31.0); Mean Corpuscular Volume 84.7 fl (80.0-94.0); Mean Platelet Volume 8.3 fL (7.4-10.4); Platelet Count 153 thou/uL (130-400); RBC Distribution Width 17.8 % (11.5-14.5); Red Blood Cell (RBC) Count 4.67 mill/uL (4.70-6.10); White Blood Cell (WBC) Count 5.5 thou/uL (4.8-10.8)
[2017-09-18 04:43] LABS: Hemoglobin 12.4 g/dL (14.0-18.0)
[2017-09-18 04:53] LABS: Anion Gap 12 mmol/L (10-20); BUN (Urea Nitrogen) 26 mg/dL (8.4-25.7); Calc. Creatinine Clearance 25 mL/min (70-130); Calcium 9.3 mg/dL (7.8-10.44); Carbon Dioxide 32 mmol/L (23-31); Chloride 100 mmol/L (98-107); Estimated GFR-MDRD 39; Glucose 87 mg/dL (83-110); Potassium 3.8 mmol/L (3.5-5.1); Sodium 140 mmol/L (136-145)
[2017-09-18 05:02] LABS: Troponin I 0.227 ng/mL (< 0.028)
[2017-09-18] MEDS: Docusate 100 MG CAP PO SCH ×2 (08:12→21:14)
[2017-09-18] MEDS: Calcium Carbonate + Vit D 1 TAB PO SCH (08:12)
[2017-09-18] MEDS: Amiodarone 200 MG TAB PO SCH ×2 (08:12→10:27)
[2017-09-18] MEDS: Ferrous Sulfate 325 MG TAB PO SCH ×2 (08:13→10:26)
[2017-09-18] MEDS ORDERED: Furosemide 40 MG TAB PO SCH (09:00)
[2017-09-18] MEDS ORDERED: Apixaban 2.5 MG TAB PO SCH (09:00)
--- NOTE | 2017-09-18 13:44 | PDOC.PN ---
- Subjective Encounter Start Date: 09/18/17 Encounter Start Time: 11:00 Subjective: pt up in bed no complains - Objective Resuscitation Status: Resuscitation Status FULL:Full Resuscitation Vital Signs & Weight: Vital Signs (12 hours) Temp Pulse Resp BP Pulse Ox 09/18/17 12:11 98.0 F 62 16 131/56 L 95 09/18/17 09:03 98.2 F 60 16 133/62 91 L 09/18/17 08:00 98.1 F 60 16 09/18/17 04:18 98.1 F 60 16 130/70 94 L Weight Weight 126 lb 9.6 oz I&O: 09/17/17 09/18/17 09/19/17 06:59 06:59 06:59 Intake Total 307 Output Total 425 Balance -118 Result Diagrams: 09/18/17 04:27 09/18/17 04:27 Phys Exam - Physical Examination HEENT: PERRLA, moist MMs, sclera anicteric, TM's clear, oral pharynx no lesions , 2+ tonsils Neck: no nodes, no JVD, supple, full ROM Respiratory: no wheezing, no rales, no rhonchi, wheezing present, clear to auscultation bilateral Cardiovascular: RRR, no significant murmur, no rub, gallop, irregular Gastrointestinal: soft, non-tender, no distention, positive bowel sounds Musculoskeletal: no edema, pulses present, edema present Neurological: non-focal, normal sensation, moves all 4 limbs Dx/Plan - Plan * 1)upper gi bleed * 2) mild anemia * 3) elevated trops * 4) atrial arrthymia * 5) ckd * * plan: pt's hh is stable. on protonix, gi consulted. Pt's last echo was last year ef of 50-55% with sever mitral and tricuspid regurg. pt has been on eliquis. Pt has no chest pain and his trops have been elevated in the past, ekg paced. pt denies using any NSAIDS. Review of Systems - Review of Systems Eyes: negative: Pain, Vision Change, Conjunctivae Inflammation, Eyelid Inflammation, Redness, Other ENT: negative: Ear Pain, Ear Discharge, Nose Pain, Nose Discharge, Nose Congestion, Mouth Pain, Mouth Swelling, Throat Pain, Throat Swelling, Other Respiratory: negative: Cough, Dry, Shortness of Breath, Hemoptysis, SOB with Excertion, Pleuritic Pain, Sputum, Wheezing Cardiovascular: negative: chest pain, palpitations, orthopnea, paroxysmal nocturnal dyspnea, edema, light headedness, other Gastrointestinal: negative: Nausea, Vomiting, Abdominal Pain, Diarrhea, Constipation, Melena, Hematochezia, Other Genitourinary: negative: Dysuria, Frequency, Incontinence, Hematuria, Retention , Other - Medications/Allergies Allergies/Adverse Reactions: Allergies Allergy/AdvReac Type Severity Reaction Status Date / Time Iodine and Iodide Containing Allergy ITCHING, Verified 09/17/17 20:14 Produc FLUSHING, RASH ofloxacin [From Floxin] Allergy HALLUCINATI Verified 09/17/17 20:14 ONS Penicillins Allergy ITCHING, Verified 09/17/17 20:14 EARS RINGING, BREATHING PROBLEMS pentazocine Allergy Verified 09/17/17 20:14 Medications: Current Medications Hydrocodone Bitart/Acetaminophen ([place] 5/325) 1 tab PO Q6H PRN PRN Reason: Mild-Moderate Pain (1-5) Stop: 09/18/17 23:30 Hydrocodone Bitart/Acetaminophen ([place] 5/325) 2 tab PO Q6H PRN PRN Reason: Moderate to Severe Pain (6-10) Stop: 09/18/17 23:30 Last Admin: 09/18/17 10:26 Dose: 2 tab Amiodarone HCl (Cordarone) 200 mg PO DAILY [facility] Last Admin: 09/18/17 10:27 Dose: 200 mg Atorvastatin Calcium (Lipitor) 20 mg PO [facility] Calcium/Vitamin D (Caltrate 600 + Vit D) 1 tab PO QAM-WM [facility] Last Admin: 09/18/17 08:12 Dose: Not Given Digoxin (Lanoxin) 0.125 mg PO MoWeFr@0900 [facility] Docusate Sodium (Colace) 100 mg PO BID [facility] Last Admin: 09/18/17 08:12 Dose: Not Given Ferrous Sulfate (Feosol) 325 mg PO DAILY [facility] Last Admin: 09/18/17 10:26 Dose: 325 mg Furosemide (Lasix) 40 mg PO DAILY [facility] Last Admin: 09/18/17 08:13 Dose: Not Given Pantoprazole Sodium 80 mg/Miscellaneous Medication 1 each/ Sodium Chloride 100 mls @ 10 mls/hr IVPB INF [facility] Last Admin: 09/18/17 07:54 Dose: 100 mls Miscellaneous Medication (Movantik) 12.5 mg PO DAILY [facility] Last Admin: 09/18/17 08:13 Dose: Not Given Polyethylene Glycol (Miralax) 17 gm PO DAILY PRN PRN Reason: Constipation Sodium Chloride (Flush - Normal Saline) 10 ml IVF PRN PRN PRN Reason: Saline Flush Temazepam (Restoril) 15 mg PO HS PRN PRN Reason: Insomnia Tramadol HCl (Ultram) 50 mg PO TID PRN PRN Reason: Pain
[2017-09-18 15:26] LABS: CKMB 1.4 ng/mL (0-6.6); Troponin I 0.204 ng/mL (< 0.028)
--- NOTE | 2017-09-18 17:53 | CON ---
DATE OF CONSULTATION: 09/18/2017 GASTROENTEROLOGY CONSULTATION NOTE CHIEF COMPLAINT: Black stools. HISTORY OF PRESENT ILLNESS: Mr. Trevino is an 86-year-old man who came to the emergency room last nig ht with dark stools. He had had black dark stools for 3 days. He has been taking iron supplements w hich were started fairly recently. He has had no nausea or vomiting with this. He does report over the last few years, intermittent pain in the left upper to left lower abdomen that becomes burning an d then radiates across his lower abdomen and then can go on for a couple hours and then be followed b y an episode of diarrhea. He gets these episodes once every couple of months. He has had no hematem esis. He came to the emergency room on 08/23/2017 for low back pain. An abdominal CT scan was done which showed a small amount of ascites that was otherwise unremarkable. He has had some increased lo wer extremity edema recently as well. He has been on Eliquis for arrhythmia. He does have chronic r enal insufficiency as well. PAST MEDICAL HISTORY: CHF, arrhythmia, status post AICD placement. He has a history of Helicobacter pylori infection identified by endoscopy by Dr. May in 2008. EGD and colonoscopy in 2008 at that time were otherwise unremarkable. He has had some chronic lower abdominal pain for years. PAST SURGICAL HISTORY: Multiple back surgeries, AICD placement, appendectomy, neck surgery, cholecys tectomy, hernia repair, colon polyps removed. ALLERGIES: IODINE, OFLOXACIN, PENICILLIN, and PENTAZOCINE. CURRENT MEDICATIONS: As an outpatient include amiodarone, Eliquis, atorvastatin, ferrous sulfate, di goxin, furosemide, hydrocodone, metoprolol, Movantik, ondansetron, pantoprazole, MiraLax, temazepam, and tramadol. REVIEW OF SYSTEMS: Negative x10 systems reviewed except as stated in the history of present illness. PHYSICAL EXAMINATION: VITAL SIGNS: Temperature 98.3, pulse 64, blood pressure 125/62. GENERAL: He is in no acute distress. He is alert and oriented x3. EYES: Have no scleral icterus. OROPHARYNX: Clear without lesions. NECK: No cervical or supraclavicular lymphadenopathy. LUNGS: Clear to auscultation bilaterally. HEART: Regular rate and rhythm without murmur. ABDOMEN: Soft, nontender, and nondistended. Bowel sounds are present. EXTREMITIES: 2+ pitting lower extremity edema. LABORATORY: INR is 1.4, PTT 39.3, creatinine 1.66, albumin 4.3, and bilirubin 1.2. Transaminases ar e normal. Hemoglobin is 12.3, hemoglobin back in May was 14.2, on 08/23/2017 it was 12.8. IMPRESSION: 1. Possible gastrointestinal bleed. He presented with dark stools and slight decrease in his hemogl obin. He has been on iron recently. We will perform rectal exam. There is dark green stool in the rectal vault, but does not really appear melenic at this time. The dark sticky stools that he has be en having for the last few days could be related to his iron supplementation. Given his chronic use of anticoagulation and decrease in his hemoglobin, further evaluation to rule out a peptic ulcer is i ndicated. Furthermore, he does have a history of Helicobacter pylori infection which could put him a t risk for peptic ulcer as well. He did not tolerate the antibiotics fully when he was treated in past. He only took them for a week. 2. Chronic lower abdominal pain which occurs intermittently around once a month or so. He has been on Movantik and MiraLax for chronic opioid-induced constipation. His bowels have been moving pretty regularly lately on this regimen. RECOMMENDATIONS: 1. We will plan EGD tomorrow. If this is negative, then he can likely discharge home from a GI pers pective back on a heart healthy diet. 2. Continue proton pump inhibitor for now. 3. Dr. May will be back tomorrow.
[2017-09-18] MEDS ORDERED: Atorvastatin Calcium 40 MG TAB PO SCH (21:00)
[2017-09-19] MEDS ORDERED: Ondansetron HCl/PF 4 MG/2 ML Vial IVP PRN ×2 (05:08→11:47)
[2017-09-19] MEDS ORDERED: Ondansetron ODT 4 MG TAB PO PRN (05:08)
[2017-09-19 05:37] LABS: Anion Gap 11 mmol/L (10-20); BUN (Urea Nitrogen) 21 mg/dL (8.4-25.7); Calc. Creatinine Clearance 27 mL/min (70-130); Carbon Dioxide 29 mmol/L (23-31); Chloride 99 mmol/L (98-107); Estimated GFR-MDRD 44; Glucose 89 mg/dL (83-110); Potassium 3.7 mmol/L (3.5-5.1); Sodium 135 mmol/L (136-145)
[2017-09-19 05:42] LABS: #Eosinphils 0.1 thou/uL (0.0-0.7); #Lymphocytes 1.2 thou/uL (1.20-3.40); #Monocytes 0.5 thou/uL (0.11-0.59); #Neutrophils 5.4 thou/uL (1.40-6.50); %Basophils 0.4 % (0.0-1.0); %Eosinophils 1.1 % (0.0-10.0); %Lymphocytes 16.5 % (21.0-51.0); %Monocytes 6.5 % (0.0-10.0); %Neutrophils 75.5 % (42.0-75.0); Hemoglobin 12.4 g/dL (14.0-18.0); Mean Corpuscular HGB CONC 32.9 g/dL (32.0-36.0); Mean Corpuscular Hemoglobin 27.9 pg (27.0-31.0); Mean Corpuscular Volume 84.8 fl (80.0-94.0); Mean Platelet Volume 8.5 fL (7.4-10.4); Platelet Count 142 thou/uL (130-400); RBC Distribution Width 17.8 % (11.5-14.5); Red Blood Cell (RBC) Count 4.44 mill/uL (4.70-6.10); White Blood Cell (WBC) Count 7.1 thou/uL (4.8-10.8)
[2017-09-19] MEDS: HYDROcodone/Acetaminophen 10/325 mg Tablet PO PRN ×2 (06:39→16:15)
[2017-09-19] MEDS: Calcium Carbonate + Vit D 1 TAB PO SCH (08:00)
[2017-09-19] MEDS ORDERED: Digoxin 0.125 MG TAB PO SCH (09:00)
[2017-09-19] MEDS ORDERED: PROPOFOL 200 MG/20 ML VIAL ONE (12:34)
[2017-09-19] MEDS ORDERED: Lidocaine 1% PF 5 ML VIAL ONE (12:34)
[2017-09-19 15:33] VITALS: BP 115/61; TEMP 98.3
[2017-09-19] MEDS: Docusate 100 MG CAP PO SCH (16:02)
[2017-09-19] MEDS: Amiodarone 200 MG TAB PO SCH (16:11)
[2017-09-19] MEDS: Ferrous Sulfate 325 MG TAB PO SCH (16:11)
--- NOTE | 2017-09-19 21:12 | OP ---
PREPROCEDURE DIAGNOSES: 1. Reported history of black stools, although patient was taking some Pepto-Bismol. 2. On chronic proton-pump inhibitor. 3. Recently patient had started iron for anemia with his primary physician. 4. Normal colonoscopy screening for anastomosis in the right colon in 2008. He is on Eliquis. POSTPROCEDURE DIAGNOSES: 1. Gastric polyp 7-mm sessile on the proximal lesser curve in the body of stomach removed by snare p olypectomy. 2. Otherwise, normal esophagogastroduodenoscopy. RECOMMENDATIONS: 1. Await pathology. 2. Continue proton-pump inhibitor. PROCEDURE IN DETAIL: The patient was informed of risks, benefits, possible complications of endoscop y including perforation, bleeding, reactions to medication and aspiration, informed consent was obtai renee. The patient was brought to the endoscopy suite. He was sedated in gradual fashion once he was comfortable. Bite block was placed by incisural orifice. The endoscope was advanced through the es ophagus, stomach, and second and third portion of the abdomen, it was slowly removed. There was good view of the mucosa. There was no bleeding lesions. There was no active bleeding or stigmata of rec ent bleeding. The duodenum was normal at second and third portion. Normal villi and folds. The bul b was normal. The stomach was normal, antrum wih some mild atrophy of the mucosa. Retroflexed view s revealed a polyp or nodule, which was felt to be sessile about 7 mm in size and was friable and cou ld be a source of bleeding, especially in light of the patient's anticoagulation. This removed by ho t snare polypectomy. The GE junction was normal from below the esophagus normal and scope was remove d. RECOMMENDATIONS: 1. Await histopathology. 2. If there is further drop in hemoglobin or signs of bleeding, we could consider colonoscopy, but a t this point in time, I will hold off in light of the fact that he has got a defibrillator and he is up to date on screening with last colonoscopy in 2008 in light of the fact that he has had a previous colon resection for large polyp.
--- NOTE | 2017-09-19 23:53 | DIS ---
DATE OF ADMISSION: 09/17/2017 DATE OF DISCHARGE: 09/19/2017 DISCHARGE DIAGNOSES: 1. Mild anemia. 2. Dark stools. 3. Gastric polyp. HOSPITAL COURSE: Patient is a very pleasant 86-year-old man who initially presented to the hospital with complaints of dark stools. Patient was seen by GI, underwent an upper endoscopy and found a gas tric polyp, which was removed. Patient will follow up with GI for pathology. Patient's hemoglobin c ontinued to be stable. He will be discharged back to his home and he was educated on holding his ant icoagulation for 5 days. Patient was asked to return back if he starts having abdominal pain, chest pain, dizziness, or bright blood per rectum or even worsening dark stools. DISCHARGE MEDICATIONS: As the following: Protonix 40 mg p.o. b.i.d., tramadol 1 p.o. t.i.d. p.r.n., MiraLax 17 grams p.o. daily p.r.n., Movantik 12.5 mg daily, Toprol-XL 12.5 at bedtime, Lasix 20 mg d aily, atorvastatin 20 mg daily, digoxin 125 daily, Eliquis 2.5 p.o. b.i.d., which is going to be star poncho 5 days later, amiodarone 200 mg daily, Restoril 15 mg p.r.n. at bedtime, and iron 325 p.o. daily. PHYSICAL EXAMINATION: VITAL SIGNS: Temperature 98, 61 heart rate, pulse rate of 18, 98% on room air, 115/61 blood pressure . GENERAL: He is awake, alert, oriented x3, does not appear in no apparent distress. CV: S1, S2 present. No murmurs, rubs, or gallops. ABDOMEN: Soft, nontender. Bowel sounds are present x2. EXTREMITIES: No edema.
== END 2017-09-19 17:35 | disposition home or self-care (01) ==
LOC: ERS 15:31 → 2SW 17:54
PROVIDERS: ADMIT Family Medicine; ATTEND Family Medicine
PROC: 0DB68ZX Excision of Stomach, Via Natural or Artificial Opening Endoscopic, Diagnostic (ICD-10-PCS; principal; 2017-09-19)
DX: K92.2 Gastrointestinal hemorrhage, unspecified (principal); K31.7 Polyp of stomach and duodenum; R19.5 Other fecal abnormalities; D64.9 Anemia, unspecified; G89.29 Other chronic pain; M54.5 Low back pain; I13.0 Hypertensive heart and chronic kidney disease with heart failure and stage 1 through stage 4 chronic kidney disease, or unspecified chronic kidney disease; N18.9 Chronic kidney disease, unspecified; I50.9 Heart failure, unspecified; Z86.010 Personal history of colon polyps; Z79.01 Long term (current) use of anticoagulants; Z79.899 Other long term (current) drug therapy; Z88.0 Allergy status to penicillin; Z88.1 Allergy status to other antibiotic agents; Z88.8 Allergy status to other drugs, medicaments and biological substances; Z91.041 Radiographic dye allergy status; Z90.49 Acquired absence of other specified parts of digestive tract
CPT/HCPCS: 43251; 80048 ×2; 80053; 80162; 82274; 82550; 82553 ×2; 83690; 83880; 84484 ×3; 85014 ×2; 85018 ×2; 85025 ×3; 85610; 85730; 86850; 86870; 86900; 86901; 86902; 86920; 86922; 88305; 88312; 93005; 96365; 96366 ×2; 96376; 99285; G0378; 36415; 96374; C9113; J2001; J2704; J7050; Q0162

== ENCOUNTER 2018-01-14 15:07 | Observation (INO) | payer MEDICARE ==
[2018-01-14 16:19] LABS: #Lymphocytes 0.7 thou/uL (1.20-3.40); #Monocytes 0.4 thou/uL (0.11-0.59); %Basophils 0.3 % (0.0-1.0); %Eosinophils 0.1 % (0.0-10.0); %Lymphocytes 10.3 % (21.0-51.0); %Monocytes 5.6 % (0.0-10.0); %Neutrophils 83.7 % (42.0-75.0); Hemoglobin 15.5 g/dL (14.0-18.0); Mean Corpuscular Hemoglobin 31.5 pg (27.0-31.0); Mean Corpuscular Volume 95.3 fL (78.0-98.0); Mean Platelet Volume 8.2 fL (7.4-10.4); Platelet Count 131 thou/uL (130-400); RBC Distribution Width 14.6 % (11.5-14.5); Red Blood Cell (RBC) Count 4.94 mill/uL (4.70-6.10); White Blood Cell (WBC) Count 7.1 thou/uL (4.8-10.8)
[2018-01-14 16:26] LABS: Bilirubin Negative (Negative); Blood, Urine Large (Negative); Glucose, Urine (Dipstick) 100 mg/dL (Negative); Leukocyte Moderate (Negative); Nitrite Positive (Negative); Protein, Urine (Dipstick) > or equal to 300 mg/dL (Neg-Trace)
[2018-01-14 16:29] LABS: Clarity Cloudy (Clear)
[2018-01-14 16:33] LABS: INR-International Normal Ratio 1.5; Prothrombin Time 18.2 SEC (12.0-14.7)
[2018-01-14 16:34] LABS: PTT 37.5 SEC (22.9-36.1)
[2018-01-14 16:41] LABS: RBC/HPF GREATER THAN 50-TNTC HPF (0-3)
[2018-01-14 16:43] LABS: ALT (SGPT) 19 U/L (8-55); AST (SGOT) 16 U/L (5-34); Albumin 4.4 g/dL (3.4-4.8); Alkaline Phosphatase 107 U/L (40-150); Anion Gap 12 mmol/L (10-20); BUN (Urea Nitrogen) 25 mg/dL (8.4-25.7); Bilirubin, Total 1.7 mg/dL (0.2-1.2); Calc. Creatinine Clearance 0 mL/min (70-130); Calcium 9.9 mg/dL (7.8-10.44); Carbon Dioxide 32 mmol/L (23-31); Chloride 96 mmol/L (98-107); Estimated GFR-MDRD 36; Globulin 2.7 g/dL (2.4-3.5); Glucose 104 mg/dL (83-110); Potassium 4.1 mmol/L (3.5-5.1); Protein, Total 7.1 g/dL (5.8-8.1); Sodium 136 mmol/L (136-145)
[2018-01-14 16:43] LABS: Bacteria/HPF 1+ HPF (None Seen); Hyaline Casts/LPF NONE SEEN LPF (0-3 Hyaline); Squamous Epithelial 0-3 HPF (0-3); WBC/HPF None Seen HPF (0-3)
[2018-01-14 16:48] LABS: CKMB 6.3 ng/mL (0-6.6); Troponin I 0.292 ng/mL (< 0.028)
[2018-01-14] MEDS ORDERED: HYDROcodone/Acetaminophen 10/325 mg Tablet ONE (18:13)
[2018-01-14] MEDS ORDERED: Ondansetron ODT 4 MG TAB ONE (18:14)
[2018-01-14] MEDS ORDERED: Levofloxacin 500 mg/D5W 100 ml Premix Bag ONE (19:54)
[2018-01-14] MEDS ORDERED: MEROPENEM 1 GM/50 ML 1 GM in Premix Bag 1 BAG IVPB ONE (20:15)
[2018-01-14 21:59] VITALS: BMI 20.3
[2018-01-14] MEDS ORDERED: traMADol HCl 50 MG TAB PO PRN (22:20)
[2018-01-15] MEDS: HYDROcodone/Acetaminophen 10/325 mg Tablet PO PRN ×4 (00:11→16:09)
[2018-01-15] MEDS: Ondansetron ODT 4 MG TAB PO PRN ×3 (00:16→16:06)
--- NOTE | 2018-01-15 03:28 | HP ---
DATE OF ADMISSION: 01/14/2018 PRIMARY CARE PHYSICIAN: Dr. Keith Garsia. CODE STATUS: Patient is DNR/DNI as discussed with patient and daughter inside the room. TIME OF EVALUATION: 7:55 p.m. CHIEF COMPLAINT: Blood in the urine. HISTORY OF PRESENT ILLNESS: This is an 87-year-old male patient with past medical history of hyperli pidemia, CHF, hypertension, chronic back pain, atrial fibrillation came to the hospital after having blood in the urine, the patient had the problem since Sunday, was diagnosed with a UTI and receive d antibiotics given by the primary care doctor; however, early this morning, the patient continued to have blood in the urine and being unable to urinate, as an outpatient, was on Eliquis for atrial fib rillation. No clear triggers, no alleviating factors. REVIEW OF SYSTEMS: Constitutional: No fever, no chills, generalized weakness. Respiratory: No cou gh, sputum production, or shortness of breath. Cardiovascular: No chest pain, palpitations, shortne ss of breath. Gastrointestinal: No nausea, no vomiting, diarrhea, or abdominal pain. GARMENT SUPERVISOR: No dizz iness, headache, or feeling lightheaded. Genitourinary: Patient has blood in the urine. Extremitie s: No leg swelling. All other systems were reviewed and negative except for the findings mentioned above. PAST MEDICAL HISTORY: As mentioned in the HPI. SOCIAL HISTORY: No alcohol, no drugs. No smoking history. Patient lives in a long-term care [facility]. PAST SURGICAL HISTORY: Appendectomy, colon resection, pacemaker defibrillator, back surgery x5, blaise ia repair x3. PSYCHIATRIC HISTORY: No previous psychiatric history. FAMILY HISTORY: Reviewed and noncontributory for current presentation. DRUG ALLERGIES: OFLOXACIN, PENICILLINS, PENTAZOCINE. REPORTED MEDICATIONS: Digoxin, Lasix, pantoprazole, Eliquis, metoprolol, amiodarone, atorvastatin, N orco, Zofran, temazepam, tramadol, Viactiv, polyethylene glycol. PHYSICAL EXAMINATION: VITAL SIGNS: On presentation, blood pressure 148/70 with heart rate 72, respiratory rate was 18, tem perature 98.3, pain was 5/10, oxygen saturation was 95 on room air. GENERAL APPEARANCE: The patient is alert, oriented, not in any acute distress. HEENT: Eye: Normal conjunctivae. Moist oral mucosa. Anicteric. NECK: No JVD. RESPIRATORY: Bilateral air entry. No rales, no wheezing. Symmetric expansion. CARDIOVASCULAR: Normal rate, regular rhythm. No murmurs, no gallop, no edema. ABDOMEN: Soft, normal bowel sounds. MUSCULOSKELETAL: Baseline range of motion and strength. No tenderness. SKIN: Warm intact. No pallor, no rash, no redness. Peripheral pulses are present. NEUROLOGIC: Capillary refill seems to be intact. Baseline sensory. No evidence of any new focal we akness. Baseline speech. Cranial nerves seem to be intact. PSYCHIATRIC: Good mood. No anxiety, oriented. GENITOURINARY: Patient has hematuria with clots in the urine. IMAGING: EKG was reviewed. LABORATORY DATA: Reviewed. Hematology: White count 7.1, hemoglobin 15.5, platelet count 131, neutr ophils 83.7. Coagulation: PT 18.2 with INR 1.5, PTT 37.5. Chemistry: Sodium 136, potassium 4.1, c hloride 96, carbon dioxide 32, anion gap 12, BUN 25, creatinine 1.8 admissions. Total bilirubi n 1.7, troponin 0.292 has been always elevated in that range. The urine was positive for large amoun t of blood. No white count seen. ASSESSMENT AND PLAN: The patient will be placed in the hospital with following medical problems: 1. Hematuria, unclear etiology, Dr. Mai was called from ER, who will see the patient in the . 2. Chronic kidney disease, creatinine is stable. We will monitor, no need for any acute interventio n. 3. History of hyperlipidemia, reconcile home medications, low-cholesterol diet is advised. 4. Uncontrolled hypertension with systolic 148, reconcile home medications. Adjust treatment as nee ded. 5. Deep venous thrombosis prophylaxis.
[2018-01-15] MEDS: MEROPENEM 1 GM/50 ML 1 GM in Premix Bag 1 BAG IVPB SCH ×3 (04:28→21:21)
[2018-01-15] MEDS: Ferrous Sulfate 325 MG TAB PO SCH (07:33)
[2018-01-15] MEDS: Calcium Carbonate + Vit D 1 TAB PO SCH (07:34)
[2018-01-15] MEDS: Furosemide 40 MG TAB PO SCH (09:03)
[2018-01-15] MEDS: Amiodarone 200 MG TAB PO SCH (09:04)
--- NOTE | 2018-01-15 12:53 | CON ---
DATE OF CONSULTATION: 01/15/2018 HISTORY OF PRESENT ILLNESS: This is an 87-year-old white male who I was asked to see by the ER julio high by the [facility] because of gross hematuria. He is from [place]. He has a history of p rostate cancer and a number of years ago had went through radiation therapy for that. He has not had much followup regarding that. We do not have any evidence of PSAs being done through the [facility] er. It does not sound like he has followed up with any urologist since Dr. Kirkland retired. He was s tarted having blood in his urine last week and he saw his family doctor and was placed on some antibi otics for possible UTI. There is no record collected through the emergency room here as to whether o r not they were able to find he had culture of the urine done or not. He came into the ER here with back and abdominal pain and had a CAT scan done. This was just a few days ago it was not a good scan in terms of contrast, but it did show the kidneys. There was no evidence of stones in the kidneys. There was no evidence of hydronephrosis of either ureter. The bladder was not significantly distend ed. There are areas in both kidneys that are likely cysts, there is nothing that obviously appeared to be a renal mass. As mentioned, the scan was done with imaging, but the cans were done very quickl y after the imaging, it really did not have time to get through to either of the kidneys. His urinal ysis here showed nitrites to be positive, large blood, moderate leukocytes. There were 1+ bacteria. There is no white blood cells seen, but a lot of red blood cells seen. His PT was abnormal, INR was normal. His hemoglobin was normal. His platelet count was normal. A urine culture has been sent u p. Blood cultures have been set up, so far the urine culture is negative. He was placed on meropene m by the Hospitalist and received Levaquin in the emergency department. His vital signs since he is admitted he has been afebrile with stable vital signs and his white blood cell count when he came in was normal. PAST MEDICAL HISTORY: He does have a history of prostate cancer and a number of years ago underwent radiation therapy for that. He has a history of atrial fibrillation and has been on Eliquis for that . He has had history of GE reflux disease. He has a history of GI bleed and underwent upper and low er endoscopy, that was in the spring time of this year. He has a history of some heart disease and a lso has had a history of a defibrillator placement. He has had appendectomy. He has had neck surger y, cholecystectomy, hernia repair. ALLERGIES: IODINE, QUINOLONES, PENICILLIN, ZOSYN. PHYSICAL EXAMINATION: ABDOMEN: He has no flank tenderness. Abdomen is soft and nontender. There is a small tattoo from h is prior radiation. GENITOURINARY: The penis is circumcised with no lesions. Testicles are both descended. There is a left-sided hydrocele. RECTAL; Rectal exam was not done today. IMPRESSION: Gross hematuria. I came back to see him at lunch time today. The urine is back to yell ow in color. I think the hematuria is probably related to his radiation therapy and his blood thinne rs. I think he should stay off blood thinners for a few days. I do not think he should get an offic e cystoscopy done and I can set that up through my office and see him as an outpatient, although the family does have an option of checking Dr. Soni to see if this could be done in [place] as he does live in [place] and Dr. Soni practices there. I do not think that at his age, the fact that he i s DNR, that a contrast CT needs to be repeated. I do think is reasonable to get a PSA blood test don e and I have ordered that to be done at the next blood draw. It is uncertain as to whether or not he has actually had urine infections. I cannot find any evidence that he has actually had urine cultur es done, but he has had one done this visit and we will see what that shows. I think he could go zohreh e at any time from my standpoint with his urine now being clear.
--- NOTE | 2018-01-15 14:04 | PDOC.PN ---
- Subjective Encounter Start Date: 01/15/18 Encounter Start Time: 14:02 Subjective: alert, urine clearing - Objective Vital Signs & Weight: Vital Signs (12 hours) Temp Pulse Resp BP Pulse Ox 01/15/18 11:22 98.3 F 61 16 148/65 H 92 L 01/15/18 08:00 98.2 F 60 16 01/15/18 07:54 98.2 F 60 16 122/69 96 Weight Weight 126 lb Result Diagrams: 01/14/18 16:12 01/14/18 16:12 Phys Exam - Physical Examination Neck: no JVD Respiratory: clear to auscultation bilateral Cardiovascular: no significant murmur, irregular Gastrointestinal: soft, positive bowel sounds Musculoskeletal: no edema Dx/Plan (1) Hematuria, gross Status: Acute (2) Atrial fibrillation with controlled ventricular rate Code(s): I48.91 - UNSPECIFIED ATRIAL FIBRILLATION Status: Chronic (3) Anticoagulant long-term use Code(s): Z79.01 - IT INFRASTRUCTURE PROJECT MANAGER (CURRENT) USE OF ANTICOAGULANTS Status: Chronic (4) HTN (hypertension) Code(s): I10 - ESSENTIAL (PRIMARY) HYPERTENSION Status: Chronic Qualifiers: Hypertension type: essential hypertension Qualified Code(s): I10 - Essential (primary) hypertension - Plan cont to hold eliquis, cont other home meds -: DC in AM if no gross hematuria. FU with Dr Millan as outpt * .
[2018-01-15] MEDS ORDERED: Atorvastatin Calcium 20 MG TAB PO SCH (21:00)
[2018-01-16] MEDS: HYDROcodone/Acetaminophen 10/325 mg Tablet PO PRN ×3 (02:34→11:28)
[2018-01-16] MEDS: MEROPENEM 1 GM/50 ML 1 GM in Premix Bag 1 BAG IVPB SCH ×2 (04:07→11:29)
[2018-01-16 07:35] LABS: Total PSA 0.3 ng/mL (0.0-4.0)
[2018-01-16] MEDS: Calcium Carbonate + Vit D 1 TAB PO SCH (08:16)
[2018-01-16] MEDS: Ferrous Sulfate 325 MG TAB PO SCH (08:16)
[2018-01-16] MEDS: Furosemide 40 MG TAB PO SCH (08:16)
[2018-01-16] MEDS: Ondansetron ODT 4 MG TAB PO PRN (08:16)
[2018-01-16] MEDS: Amiodarone 200 MG TAB PO SCH (08:17)
[2018-01-16] MEDS ORDERED: Digoxin 0.125 MG TAB PO SCH (09:00)
--- NOTE | 2018-01-16 10:18 | DIS ---
TRANSFER OF CARE NOTE PRIMARY CARE PROVIDER: Dr. Keith Garsia DATE OF ADMISSION: 01/14/2018 DATE OF DISCHARGE: 01/16/2018 DISCHARGE DISPOSITION: Home. FINAL DIAGNOSES: 1. Gross hematuria. 2. Long-term use of anticoagulants. 3. Atrial fibrillation. 4. Hypertension. DISCHARGE MEDICATIONS: His Eliquis has been held. He is discharged on Lasix 40 mg a day, Lipitor 20 mg at bedtime, digoxin 0.125 mg Sunday, Sunday, Sunday, amiodarone 200 mg a day, Protonix 40 mg t wice a day, metoprolol 12.5 mg at bedtime, hydrocodone 10/325 one tablet every 4 hours as needed for pain. ALLERGIES: PENTAZOCINE, PENICILLINS. FLOXIN, IODINE CONTAINING PRODUCTS. DIET: Heart healthy. CODE STATUS: FULL. PENDING AT THE TIME OF DISCHARGE: Nothing. HOSPITAL COURSE: The patient admitted to the hospital through [facility] with gross h ematuria. He has had the blood in his urine for several days, had been given an antibiotic with no r elief. His initial studies revealed gross hematuria. Creatinine 1.8. Normal sodium and potassium. INR 1.5, PTT of 37.5. CBC; normal hemoglobin 15.5, normal white count 7.1, normal platelet count 13 1,000. It is pertinent to note that on his urine, despite the gross hematuria there were no white ce lls seen. His Eliquis was stopped. His gross hematuria has resolved. Blood and urine cultures are negative to date. He was seen in consultation by Dr. Kaushik Mai. He is to be followed up next w [place] with Dr. Mai his office with a cystoscopy. His Eliquis will be held until then. PROCEDURES: No procedures were done in the hospital. CONDITION AT THE TIME OF DISCHARGE: Vital signs were stable. Cardiorespiratory exam was normal. Ur ine was clear.
[2018-01-16 12:30] VITALS: BP 149/69; TEMP 98.5
== END 2018-01-16 13:28 ==
LOC: ERS 15:07 → T4-B 20:35
PROVIDERS: ADMIT Internal Medicine Infectious Disease; ATTEND Internal Medicine Infectious Disease
DX: R31.0 Gross hematuria (principal); E78.5 Hyperlipidemia, unspecified; G89.29 Other chronic pain; M54.9 Dorsalgia, unspecified; I48.91 Unspecified atrial fibrillation; I12.9 Hypertensive chronic kidney disease with stage 1 through stage 4 chronic kidney disease, or unspecified chronic kidney disease; N18.9 Chronic kidney disease, unspecified; I50.9 Heart failure, unspecified; K21.9 Gastro-esophageal reflux disease without esophagitis; N43.3 Hydrocele, unspecified; Z66 Do not resuscitate; Z92.3 Personal history of irradiation; Z85.46 Personal history of malignant neoplasm of prostate; Z79.01 Long term (current) use of anticoagulants; Z79.899 Other long term (current) drug therapy; Z95.810 Presence of automatic (implantable) cardiac defibrillator; Z88.0 Allergy status to penicillin; Z88.1 Allergy status to other antibiotic agents; Z88.8 Allergy status to other drugs, medicaments and biological substances; Z90.49 Acquired absence of other specified parts of digestive tract; Z91.041 Radiographic dye allergy status
CPT/HCPCS: 80053; 82553; 83605; 84153; 84154; 84484; 85025; 85610; 85730; 87040; 87086; 93005; 96365; 96366 ×2; 99284; G0378 ×2; 36415; 81003; 81015; J1956; J2185; Q0162

== ENCOUNTER 2018-01-25 10:21 | Day surgery (SDC) | payer MEDICARE ==
[2018-01-24 18:06] VITALS: BMI 21.6
[2018-01-25] MEDS ORDERED: CEFAZOLIN/Water 2 GM/20 ML SYRINGE ONE ×2 (10:45→11:54)
[2018-01-25 11:52] LABS: #Lymphocytes 0.8 thou/uL (1.20-3.40); #Monocytes 0.6 thou/uL (0.11-0.59); #Neutrophils 7.9 thou/uL (1.40-6.50); %Basophils 0.1 % (0.0-1.0); %Eosinophils 0.3 % (0.0-10.0); %Lymphocytes 8.2 % (21.0-51.0); %Monocytes 6.2 % (0.0-10.0); %Neutrophils 85.3 % (42.0-75.0); Hemoglobin 14.6 g/dL (14.0-18.0); Mean Corpuscular HGB CONC 33.4 g/dL (32.0-36.0); Mean Corpuscular Hemoglobin 31.8 pg (27.0-31.0); Mean Platelet Volume 8.4 fL (7.4-10.4); Platelet Count 109 thou/uL (130-400); RBC Distribution Width 14.2 % (11.5-14.5); White Blood Cell (WBC) Count 9.3 thou/uL (4.8-10.8)
[2018-01-25] MEDS ORDERED: Fentanyl 100 MCG/2 ML VIAL ONE (11:54)
[2018-01-25] MEDS ORDERED: Fentanyl 250 MCG/5 ML VIAL ONE (11:55)
[2018-01-25] MEDS ORDERED: PHENYLEPHRINE-NS 100 MCG/ML 10 ML SYRINGE ONE (11:58)
[2018-01-25] MEDS ORDERED: Lidocaine 1% PF 5 ML VIAL ONE (11:58)
[2018-01-25] MEDS ORDERED: PROPOFOL 200 MG/20 ML VIAL ONE (11:58)
[2018-01-25 12:02] LABS: Anion Gap 11 mmol/L (10-20); BUN (Urea Nitrogen) 29 mg/dL (8.4-25.7); Calc. Creatinine Clearance 23 mL/min (70-130); Calcium 9.7 mg/dL (7.8-10.44); Carbon Dioxide 28 mmol/L (23-31); Estimated GFR-MDRD 35; Glucose 100 mg/dL (83-110); Potassium 4.2 mmol/L (3.5-5.1)
[2018-01-25 12:03] LABS: PTT 28.1 SEC (22.9-36.1); Prothrombin Time 13.7 SEC (12.0-14.7)
[2018-01-25 12:07] LABS: Chloride 100 mmol/L (98-107); Sodium 135 mmol/L (136-145)
--- NOTE | 2018-01-25 13:57 | OP ---
DATE OF PROCEDURE: 01/25/2018 PREOPERATIVE DIAGNOSES: Gross hematuria, prostate cancer, radiation bleeding. POSTOPERATIVE DIAGNOSES: Gross hematuria, prostate cancer, radiation bleeding. PROCEDURE PERFORMED: Cystoscopy, clot evacuation, fulguration of bladder wall. SURGEON: Dr. Kaushik Mai. ANESTHETIC: General. ESTIMATED BLOOD LOSS: Minimal. FINDINGS: There was a moderate amount of clot on the floor of the bladder that was evacuated out, 2 ureteral orifices with clear efflux. There were numerous telangiectatic vessels on the floor and tri gone. Some of them actively oozing. DRAINS PLACED: An 18-English Carreno catheter, 20 mL in the balloon. INDICATIONS FOR SURGERY: This is an 87-year-old male who underwent radiation for prostate cancer num margaret of years ago. His PSA is 0.3 currently, so he seems to be under good control, if not cure of thi s. However, he presented recently with gross hematuria and came in my office for office cystoscopy y esterday and was found again to have gross hematuria which he had actually had for a few days. He matt s had a prior upper tract study which was done on the of this month as a CT scan which showed so me renal hyperdense cysts. He did not have anything that obviously suggested an upper renal tract le clyde. It was done without contrast secondary to his renal insufficiency with a creatinine currently running around 1.8. He is coming in now for a cystoscopy, fulguration. OPERATIVE TECHNIQUE: After obtaining written and verbal consent from the patient after receiving IV Ancef, he was taken to the operating suite. He was placed in the supine position. Treatment table. PlexiPulses placed in the lower extremities and turned on. He was given a general anesthetic, oral obturator intubation. He was placed in the dorsal lithotomy position, sterilely prepped and draped f or cystoscopy after his Carreno catheter was removed. A 22 English sheath was passed under direct visio n through the male urethra into the urinary bladder with aid of a 30-degree lens and video camera jr Henson evacuator was used to evacuate out a moderate amount of clot. The bladder was then exam ined with a 30 and 70 lens with the findings above. The ureteral orifices were identified, were quit e small, but were visualized and effluxing clear urine. We then went ahead and used the Bugbee elect rode to cauterize abnormal areas of bladder mucosa and areas that were oozing. We then rechecked, we relooked at the ureter to be sure they were effluxing, which they were. A Carreno catheter was then i nserted and we injected about 60 mL of sterile water, waited about 5 minutes and drained this. It re mained clear. I did this one more time and it remained clear and at this point the Carreno catheter wa s hooked up to a leg bag. He was taken out of the dorsal lithotomy position, awakened, and extubated and taken by stretcher to the recovery room.
--- NOTE | 2018-01-29 08:55 | PQF ---
[facility] POST DISCHARGE CLINICAL DOCUMENTATION IMPROVEMENT CLARIFICATION FORM l Todays Date: 01/29/18 l Patients Name FARRUKH BRYANT l l Admit Date 01/25/18 l Disch Date 01/25/18 Battery Assembler Plastic Name Luis Weiner Email: [email or web address] Cell: [phone] Present Clinical Indicators - Signs / Symptoms Results and Location in Medical Record [ ] Documentation of: [ ] [ ] Documentation of: [ ] [ ] Documentation of: [ ] [ ] Documentation of: [ ] [ ] Risks [ ] [ ] [ ] Treatment [ ] Bladder lesions Please specify the size of fulgurated bladder lesions in Operative report. [ ] [ ] To be completed by Physician: BARBI LONDON The documentation in this patients record requires clarification to ensure coding compliance and accuracy. Check the appropriate box and include in your discharge summary. [ ] [ ] [ ] [ ] Please check this box if this does not apply to this patient [ ] Unable to determine [ ] Other diagnosis: Review the following information and exercise your independent professional judgment in responding to the clarification. Based upon the clinical findings, risk factors, and treatment, please clarify if you are treating one of the above probable or suspected diagnoses. MTDD
--- NOTE | 2018-03-11 08:32 | PQF ---
POST DISCHARGE CLINICAL DOCUMENTATION IMPROVEMENT CLARIFICATION FORM l Todays Date: 03/11/2018 l Patients Name Marshall Trevino l l Admit Date 01/25/18 l Disch Date 01/25/18 Roofer Assistant Contact Name: Email: Cell: Present Clinical Indicators - Signs / Symptoms Results and Location in Medical Record [ ] Documentation of: [ ] [ ] [ ] Risks [ ] [ ] [ ] Treatment [ ] Bladder lesions Please specify the size of the fulgurated bladder lesions. [ ] [ ] Dr. Kaushik Mai The documentation in this patients record requires clarification to ensure coding compliance and accuracy. Check the appropriate box and include in your discharge summary/addendum. [ ] [ ] [ ] Please check this box if this does not apply to this patient [ ] Unable to determine [ ] Other diagnosis/procedure: Review the following information and exercise your independent professional judgment in responding to the clarification. Based upon the clinical findings, risk factors, and treatment, please clarify if you are treating one of the above probable or suspected diagnoses. Physician Signature: Date Time MTDD
== END 2018-01-25 15:30 | disposition home or self-care (01) ==
LOC: SDC 10:21
PROVIDERS: ATTEND Urology
PROC: 0T5B8ZZ Destruction of Bladder, Via Natural or Artificial Opening Endoscopic (ICD-10-PCS; principal; 2018-01-25)
PROC: 0TCB8ZZ Extirpation of Matter from Bladder, Via Natural or Artificial Opening Endoscopic (ICD-10-PCS; 2018-01-25)
DX: N32.89 Other specified disorders of bladder (principal); R31.0 Gross hematuria; I48.91 Unspecified atrial fibrillation; K21.9 Gastro-esophageal reflux disease without esophagitis; Z85.46 Personal history of malignant neoplasm of prostate; Z79.899 Other long term (current) drug therapy; Z88.0 Allergy status to penicillin; Z88.1 Allergy status to other antibiotic agents; Z88.8 Allergy status to other drugs, medicaments and biological substances; Z91.041 Radiographic dye allergy status; Z90.49 Acquired absence of other specified parts of digestive tract; Z95.1 Presence of aortocoronary bypass graft
CPT/HCPCS: 80048; 85025; 85610; 85730; J2001; J2704; J3010

== ENCOUNTER 2018-04-12 08:53 | Outpatient (CLI) | payer MEDICARE ==
--- NOTE | 2018-04-12 11:29 | CT ---
CT ABDOMEN AND PELVIS NONCONTRAST: History Right flank pain. COMPARISON: 01/12/2018. FINDINGS: Each renal collecting system, ureter, and urinary bladder are decompressed without stone apparent. Lack of contrast limits evaluation for other abnormalities. Gallbladder is surgically absent. Liver remains hyperdense. Postoperative changes of the right lower quadrant are present with presumed lorenza or appendectomy. A small amount of free fluid within the right lower quadrant is similar in appearan ce to the previous study. Fluid in the dependent portions of the pelvis has decreased. There is pro minent calcification throughout the arterial structures. No evidence of bowel obstruction. Postoper ative and degenerative changes lumbar spine. Fluid density cysts and hyperdense cysts arising from t he kidneys are again demonstrated. The hyperdense exophytic cyst at the lateral cortex inferior pole right kidney has enlarged slightly. IMPRESSION: 1. No CT evidence of urinary tract obstruction or calcification. 2. Prominent atherosclerosis. 3. Interval decrease in free fluid within the abdomen. POS: HENRI
== END 2018-04-12 08:54 | disposition home or self-care (01) ==
LOC: CT 08:53
PROVIDERS: ATTEND Internal Medicine
DX: R31.21 Asymptomatic microscopic hematuria (principal); I70.0 Atherosclerosis of aorta
CPT/HCPCS: 74176

== ENCOUNTER 2018-10-04 11:32 | Emergency (ER) | payer MEDICARE ==
--- NOTE | 2018-10-04 12:10 | RAD ---
XR Chest 1 View Portable History: [Chest pain] Comparison: Chest radiograph August 23, 2017 Findings: Heart size is enlarged. No pneumothorax. No large effusion. Mild pulmonary venous congestio n. Device is similar. Impression: Cardiomegaly and mild pulmonary venous congestion.
[2018-10-04 12:36] LABS: #Eosinphils 0.1 thou/uL (0.0-0.7); #Lymphocytes 1.5 thou/uL (1.20-3.40); #Monocytes 0.5 thou/uL (0.11-0.59); #Neutrophils 4.6 thou/uL (1.40-6.50); %Basophils 0.6 % (0.0-1.0); %Eosinophils 0.9 % (0.0-10.0); %Monocytes 7.9 % (0.0-10.0); %Neutrophils 68.6 % (42.0-75.0); Hemoglobin 15.7 g/dL (14.0-18.0); Mean Corpuscular HGB CONC 32.5 g/dL (32.0-36.0); Mean Corpuscular Hemoglobin 32.4 pg (27.0-31.0); Mean Corpuscular Volume 99.8 fL (78.0-98.0); Platelet Count 113 thou/uL (130-400); RBC Distribution Width 14.8 % (11.5-14.5); Red Blood Cell (RBC) Count 4.84 mill/uL (4.70-6.10); White Blood Cell (WBC) Count 6.7 thou/uL (4.8-10.8)
[2018-10-04 13:20] LABS: ALT (SGPT) 18 U/L (8-55); AST (SGOT) 9 U/L (5-34); Albumin 3.8 g/dL (3.4-4.8); Alkaline Phosphatase 91 U/L (40-150); Anion Gap 13 mmol/L (10-20); BUN (Urea Nitrogen) 28 mg/dL (8.4-25.7); Bilirubin, Total 1.6 mg/dL (0.2-1.2); CK (CPK) 46 U/L (30-200); Calc. Creatinine Clearance 0 mL/min (70-130); Calcium 9.4 mg/dL (7.8-10.44); Carbon Dioxide 29 mmol/L (23-31); Chloride 102 mmol/L (98-107); Estimated GFR-MDRD 38; Globulin 2.3 g/dL (2.4-3.5); Glucose 104 mg/dL (83-110); Lipase 54 U/L (8-78); Potassium 3.5 mmol/L (3.5-5.1); Protein, Total 6.1 g/dL (5.8-8.1); Sodium 140 mmol/L (136-145)
[2018-10-04 13:30] LABS: CKMB 2.7 ng/mL (0-6.6)
[2018-10-04] MEDS ORDERED: Aspirin Chewable 81 MG TAB ONE (13:38)
[2018-10-04] MEDS ORDERED: Nitroglycerin 2% Ointment 1 INCH/1 GM Packet ONE (13:38)
[2018-10-04] MEDS ORDERED: HYDROcodone/Acetaminophen 10/325 mg Tablet ONE (14:17)
== END 2018-10-04 14:20 | disposition home or self-care (01) ==
LOC: ERS 11:32
DX: I11.0 Hypertensive heart disease with heart failure (principal); I50.9 Heart failure, unspecified; I48.91 Unspecified atrial fibrillation; I25.2 Old myocardial infarction; E78.5 Hyperlipidemia, unspecified; Z79.899 Other long term (current) drug therapy
CPT/HCPCS: 36415; 71045; 80053; 82550; 82553; 83690; 83880; 84484; 85025; 93005

== ENCOUNTER 2018-10-13 06:35 | Inpatient (IN) | payer MEDICARE ==
[2018-10-13 07:22] LABS: #Lymphocytes 1.4 thou/uL (1.20-3.40); #Monocytes 0.5 thou/uL (0.11-0.59); #Neutrophils 4.1 thou/uL (1.40-6.50); %Basophils 0.6 % (0.0-1.0); %Eosinophils 0.6 % (0.0-10.0); %Lymphocytes 22.7 % (21.0-51.0); %Monocytes 8.3 % (0.0-10.0); %Neutrophils 67.8 % (42.0-75.0); Hemoglobin 15.3 g/dL (14.0-18.0); Mean Corpuscular HGB CONC 31.6 g/dL (32.0-36.0); Mean Corpuscular Hemoglobin 31.6 pg (27.0-31.0); Mean Corpuscular Volume 99.9 fL (78.0-98.0); Mean Platelet Volume 8.3 fL (7.4-10.4); Platelet Count 110 thou/uL (130-400); RBC Distribution Width 14.4 % (11.5-14.5); Red Blood Cell (RBC) Count 4.83 mill/uL (4.70-6.10)
[2018-10-13 07:40] LABS: ALT (SGPT) 16 U/L (8-55); AST (SGOT) 11 U/L (5-34); Alkaline Phosphatase 99 U/L (40-150); Anion Gap 15 mmol/L (10-20); BUN (Urea Nitrogen) 33 mg/dL (8.4-25.7); Calc. Creatinine Clearance 0 mL/min (70-130); Calcium 9.7 mg/dL (7.8-10.44); Carbon Dioxide 32 mmol/L (23-31); Chloride 95 mmol/L (98-107); Estimated GFR-MDRD 34; Globulin 2.1 g/dL (2.4-3.5); Glucose 91 mg/dL (83-110); Lipase 40 U/L (8-78); Magnesium 2.3 mg/dL (1.6-2.6); Potassium 4.5 mmol/L (3.5-5.1); Protein, Total 6.1 g/dL (5.8-8.1); Sodium 137 mmol/L (136-145)
[2018-10-13] MEDS ORDERED: Furosemide 40 MG/4 ML VIAL ONE (07:54)
[2018-10-13 07:58] LABS: CKMB 2.9 ng/mL (0-6.6)
[2018-10-13 08:16] LABS: Bilirubin Negative (Negative); Blood, Urine Negative (Negative); Clarity CLEAR (Clear); Glucose, Urine (Dipstick) Negative (Negative); Leukocyte Negative (Negative); Nitrite Negative (Negative); Protein, Urine (Dipstick) Negative (Neg-Trace); Specific Gravity, Urine 1.013 (1.002-1.036)
--- NOTE | 2018-10-13 08:57 | HP ---
PRIMARY CARE PHYSICIAN: Dr. Keith Martínez. CHIEF COMPLAINT: "I have this pressure that starts in my abdomen and goes up into my chest." HISTORY OF PRESENT ILLNESS: Please note that the history of present illness is very limited as Mr. Trevino is not the best historian. Mr. Trevino is a pleasant 87-year-old gentleman, who has a history of coronary artery disease as well as history of cardiomyopathy and he is status post defibrillator placement. His last echo that I can see in our records was back in September 2017 and at that time, his ejection fraction was 50% to 55%. He says that he was in his usual state of health until the last couple of weeks, where he has noted increasing leg swelling, but this has actually gotten better, but he says that in the last couple of days, he wakes up every 4 hours with the pressure in his lower abdomen on the left side, which then radiates up toward his chest. He says that during this time, he loses his breath. He also says that when he was getting around his house, he could hardly walk and his said that this was enough and that he needed to come in to get this checked out. As a result, he came to the Emergency Room at [facility] in [place]. He was evaluated and found that he had an elevated troponin and he was sent here for further evaluation. Otherwise, the patient noticed some nausea, but he believes that is due to the pain medication. No vomiting. No dizziness. No lightheadedness and that is basically what I could obtain from him. REVIEW OF SYSTEMS: With regard to the review of systems; CONSTITUTIONAL: There has been no fevers or chills, no night sweats. No weight loss. HEENT: No headaches. No dizziness. No visual changes. No sore throat, rhinorrhea, or neck pain. No adenopathy. PULMONARY: No hemoptysis. No cough. No wheezing. CARDIOVASCULAR: As the history of present illness. GASTROINTESTINAL: No nausea. No vomiting. No change in bowels. GENITOURINARY: No urinary frequency or hematuria. No hesitancy. MUSCULOSKELETAL: He has chronic back pain. He says the pain goes into his legs off and on, but this has been a chronic problem. NEUROLOGIC: No seizures. No focal weakness. ENDOCRINE: No heat or cold intolerance. SKIN AND INTEGUMENT: He has some redness of both lower extremities and erythema. He also said he had some ulcers on his lower extremities, which have actually improved with wound care. PAST MEDICAL HISTORY: Significant for atrial fibrillation, coronary artery disease, prostate cancer, hypertension, and chronic low back pain. PAST SURGICAL HISTORY: He has had an appendectomy as well as colon resection and pacemaker and defibrillator placed. He has had back surgery x5, hernia repair as well as tonsillectomy. ALLERGIES: TO PENICILLIN, IODINE, OFLOXACIN, AND PENTAZOCINE. SOCIAL HISTORY: He is . He lives with his . He is a former smoker. He denies any alcohol use and his daughter is his surrogate decision maker. When asked about code status, he understood what I have meant, but says that he would want at least to have a try, but if it seems like it was not going to benefit him to let him go since he wants at least a try. He is, in my opinion, a full code. He says he does have some paperwork regarding this and he will have to bring this in. FAMILY HISTORY: Significant for heart disease in his father and his sons. CURRENT MEDICATIONS: Include; 1. Amlodipine 200 mg daily. 2. Lipitor 20 mg daily. 3. Calcium carbonate 500 mg daily. 4. Digoxin 0.125 mg p.o. daily. 5. Doxycycline 100 mg twice a day. 6. Eliquis 2.5 mg twice daily. 7. Iron sulfate 325 mg daily. 8. Lasix 40 mg daily. 9. [place] 10/325 q.4 hours. 10. Tramadol as needed. 11. Temazepam 15 mg at bedtime. 12. Protonix 40 mg daily. 13. Metoprolol XL 25 mg daily. 14. Movantik 12.5 mg daily. 15. Zofran p.r.n. PHYSICAL EXAMINATION: GENERAL: He is alert and oriented. He appears to be in no acute distress. He is well developed, however, he is a bit thin and frail and cachectic in appearance. VITAL SIGNS: Blood pressure was 135/76; heart rate 65; respiratory rate of 20; and temperature, he is afebrile. HEENT: Pupils are equal, round, and reactive to light. Extraocular muscles are intact. His sclerae are anicteric. He does have some temporal muscle wasting. Throat; there is no erythema. No exudates. NECK: There is no adenopathy. No bruits. LUNGS: Clear to auscultation. There are no wheezing, no rales. He did have some coarse breath sounds. CARDIOVASCULAR: He has a normal S1 and S2. There is no S3 or S4. He does have a grade 2/6 systolic murmur as well as diastolic murmur heard over the entire precordium. ABDOMEN: Scaphoid. Positive for bowel sounds. There is no rebound. No guarding. No organomegaly. EXTREMITIES: He has some erythema bilaterally. There are no joint effusions. NEUROLOGIC: His cranial nerves are intact, II through XII and his muscle strength is intact in both his upper and lower extremities. SKIN AND INTEGUMENT: Again, he has some erythema. There is no significant edema. His pulses are diminished, but his feet are warm bilaterally. DIAGNOSTIC DATA: Lab results are taken from the [facility] in [place] and his white blood cell count was 5.3, hemoglobin 15.3, hematocrit is 46.5, and platelet count is 110. Sodium 137, potassium 5.0, chloride is 97, CO2 is 28, BUN of 34, creatinine 1.83, glucose is 100, bilirubin 1.4, total protein 6.9, albumin is 4.1. Troponin was 0.25. EKG by my reading is V-paced. Heart rate is in the 60s. On his chest x-ray, he has cardiomegaly as well as increased pulmonary vascular markings. ASSESSMENT AND PLAN: This is a pleasant 87-year-old gentleman, who presents with abdominal and chest pain that he is concerned could be related to his heart. He also was noted to have an elevated troponin. In further conversation with him, he seems like his heart rate becomes irregular when he has these symptoms. Therefore, he will be placed in observation for possible acute coronary syndrome, therefore. 1. Chest and abdominal pain, possible acute coronary syndrome. He will be monitored on telemetry. We will continue to trend his troponins. Place him on aspirin and nitrates as well as beta-estiven as tolerated and we will consult Cardiology. 2. For atrial fibrillation, currently his heart rate appears to be controlled. He did notice some irregular heart beats in association with his symptoms. Therefore, we will have his pacer defibrillator interrogated. 3. Hypertension. His blood pressure is currently controlled. We will continue his usual home medications and have p.r.n. medications available. 4. Chronic low back pain. We will continue his home medications for pain as well as continue Movantik to help with potential opiate-induced constipation. 5. He is already on anticoagulation for his atrial fibrillation with Eliquis and we will also place him on gastrointestinal prophylaxis. Job ID: [id number]
[2018-10-13] MEDS ORDERED: Aspirin 325 mg Enteric Coated Tablet PO SCH (09:00)
[2018-10-13] MEDS ORDERED: hydrALAZINE 20 MG/ML VIAL SLOW IVP PRN (09:17)
[2018-10-13] MEDS ORDERED: Nitroglycerin 0.4 MG TAB (25 Tab Bottle) PO PRN (09:17)
[2018-10-13] MEDS ORDERED: Acetaminophen 325 MG TAB PO PRN (09:17)
[2018-10-13 09:41] VITALS: BMI 20.5
[2018-10-13 10:06] LABS: Troponin I 0.273 ng/mL (< 0.028)
[2018-10-13] MEDS: HYDROcodone/Acetaminophen 10/325 mg Tablet PO PRN ×4 (10:32→22:28)
--- NOTE | 2018-10-13 12:03 | CON ---
DATE OF CONSULTATION: 10/13/2018 REASON FOR CONSULTATION: Abnormal troponins. PRIMARY CERTIFIED PERSONAL CHEF: Froy Haq MD. HISTORY OF PRESENT ILLNESS: Mr. Trevino is a pleasant 87-year-old white gentleman, who comes to the hospital for abdominal pain. He was seen at [facility] ER in [place] and transferred here for indeterminate troponins. He has a history of abdominal pain. He states it starts in his lower abdomen and it travels up onto his chest and he feels shortness of breath when this happens. This happens periodically, not all the time. He has been in the ER before this and was discharged. His troponin was indeterminate in the [facility] ER and he has been transferred here and has remained indeterminate here. He denies any chest pain per se is more of a lower abdominal pain. He states this has been going on for a few months now. PAST MEDICAL HISTORY: 1. Paroxysmal atrial fibrillation. 2. Coronary artery disease, status post bypass. 3. Prostate cancer in the past. 4. Hypertension. 5. Chronic low back pain. PAST SURGICAL HISTORY: 1. Appendectomy. 2. Colon resection. 3. AICD placement. 4. Back surgery x5. 5. Hernia repair. 6. Tonsillectomy. OUTPATIENT MEDICATIONS: 1. Amlodipine. 2. Lipitor 10 mg a day. 3. Calcium carbonate. 4. Digoxin. 5. Doxycycline. 6. Eliquis 2.5 b.i.d. 7. Iron sulfate. 8. Lasix 40 mg a day. 9. [place]. 10. Tramadol. 11. Temazepam. 12. Protonix. 13. Metoprolol-XL 25 mg a day. 14. Movantik. 15. Zofran p.r.n. ALLERGIES: PENICILLIN, IODINE, OFLOXACIN, AND PENTAZOCINE. SOCIAL HISTORY: Former smoker. Currently, no alcohol, tobacco, or drugs. Daughter is his surrogate decision maker. REVIEW OF SYSTEMS: Twelve-point review of systems was done and was all negative unless stated in the history of present illness. PHYSICAL EXAMINATION: VITAL SIGNS: Temperature 97.5, pulse 63, respiratory rate 16, sat 97% on room air, and blood pressure 157/80. GENERAL: Awake, alert, and oriented x3. No distress. HEENT: Normocephalic and atraumatic. NECK: Supple. LUNGS: Clear. CARDIOVASCULAR: S1 and S2. No S3 or S4. There is a grade 2/6 systolic murmur at the right upper sternal border. ABDOMEN: Soft. Positive bowel sounds. EXTREMITIES: 1+ edema. There is erythema in bilateral lower extremities, worse than when he was seen recently in the office. LABORATORY DATA: Laboratory work was reviewed. CBC with a white count of 6, hemoglobin of 15, hematocrit of 48, and platelet count of 110. Chemistry with a BUN of 33 and creatinine of 1.87 with a baseline creatinine between 1.5 and 1.6. Troponins 0.24 and 0.27. BNP was 504. Albumin of 4.0. UA was negative. IMAGING STUDIES: Chest x-ray was unremarkable. ASSESSMENT: 1. Abdominal pain. 2. History of prostate cancer. 3. History of hemicolectomy. 4. History of ischemic cardiomyopathy. 5. Automatic implantable cardioverter-defibrillator in place. 6. History of paroxysmal atrial fibrillation. PLAN: 1. We will get an echocardiogram to evaluate LV function and valvular structures. Last evaluation apparently was normal, 50% to 55%. 2. We will interrogate defibrillator and make sure he has not received any shocks and is probably in atrial fibrillation at this time. Underlying atrial fibrillation. 3. CT of abdomen and pelvis, make sure there is no major abnormality going on. He is allergic to contrast, so no contrast will be used for now as well as having a mildly elevated creatinine. 4. No cardiac catheterization planned at this time. 5. We will follow. Job ID: [id number]
[2018-10-13] MEDS ORDERED: Temazepam 15 MG CAP PO PRN (12:47)
[2018-10-13] MEDS: Metoprolol Tartrate 25 MG TAB PO SCH ×2 (14:01→21:06)
[2018-10-13] MEDS: Furosemide 40 MG TAB PO SCH (14:01)
[2018-10-13] MEDS: Nitroglycerin 2% Ointment 1 INCH/1 GM Packet TOP SCH ×2 (14:01→21:09)
[2018-10-13] MEDS: Amiodarone 200 MG TAB PO SCH (14:01)
--- NOTE | 2018-10-13 14:23 | CT ---
CT abdomen and pelvis without Oral contrast was administered. INDICATIONS: Abdominal pain. History of prostate cancer COMPARISON: 04/12/2018 CT abdomen pelvis FINDINGS: Lung bases are clear Liver, spleen, and pancreas appear unremarkable. Stomach and duodenum appear unremarkable. Adrenal glands appear normal. Both kidneys again show numerous small cystic lesions some of which are hyperdense and complex. These are stable in appearance. No evidence of hydronephrosis or urinary tract obstruction. Urinary bladder is mildly distended. Mild urinary bladder wall thickening is noted. Small bowel loops show nonspecific distention. No evidence of small bowel obstruction. There is evidence for right colectomy. Anastomosis in the transverse colon again noted, unchanged in appearance. Aorta is densely calcified and ectatic. Stable in appearance. No evidence of retroperitoneal or mesenteric adenopathy. Pelvic structures appear unremarkable. Subcutaneous tissues, abdominal wall, and muscular structures appear unremarkable. Postoperative changes in the lumbar spine and degenerative changes hips appear stable. IMPRESSION: No acute process. The CT abdomen pelvic findings are stable from prior exam.
[2018-10-13 14:26] LABS: Troponin I 0.264 ng/mL (< 0.028)
[2018-10-13] MEDS: Apixaban 2.5 MG TAB PO SCH (21:06)
[2018-10-13] MEDS: Atorvastatin Calcium 40 MG TAB PO SCH (21:06)
[2018-10-13] MEDS: Potassium Chloride 20 MEQ TAB PO SCH (21:07)
[2018-10-14] MEDS: HYDROcodone/Acetaminophen 10/325 mg Tablet PO PRN ×5 (04:17→23:47)
[2018-10-14 05:34] LABS: #Eosinphils 0.1 thou/uL (0.0-0.7); #Lymphocytes 1.2 thou/uL (1.20-3.40); #Monocytes 0.4 thou/uL (0.11-0.59); #Neutrophils 4.6 thou/uL (1.40-6.50); %Basophils 0.7 % (0.0-1.0); %Eosinophils 1.1 % (0.0-10.0); %Lymphocytes 19.5 % (21.0-51.0); %Monocytes 6.6 % (0.0-10.0); %Neutrophils 72.1 % (42.0-75.0); Hemoglobin 15.5 g/dL (14.0-18.0); Mean Corpuscular HGB CONC 31.9 g/dL (32.0-36.0); Mean Corpuscular Hemoglobin 31.9 pg (27.0-31.0); Mean Corpuscular Volume 99.9 fL (78.0-98.0); Mean Platelet Volume 8.9 fL (7.4-10.4); Platelet Count 115 thou/uL (130-400); RBC Distribution Width 14.5 % (11.5-14.5); Red Blood Cell (RBC) Count 4.85 mill/uL (4.70-6.10); White Blood Cell (WBC) Count 6.4 thou/uL (4.8-10.8)
[2018-10-14 05:51] LABS: Anion Gap 13 mmol/L (10-20); BUN (Urea Nitrogen) 29 mg/dL (8.4-25.7); Calc. Creatinine Clearance 22 mL/min (70-130); Calcium 9.5 mg/dL (7.8-10.44); Carbon Dioxide 29 mmol/L (23-31); Cardiac Risk 2.9 (Less than 4.5); Chloride 98 mmol/L (98-107); Cholesterol 115 mg/dl (< 200 Desired); Estimated GFR-MDRD 38; Glucose 115 mg/dL (83-110); HDL Cholesterol 40 mg/dL (>60 Neg Risk); LDL Cholesterol, Calculated 53 mg/dL; Potassium 4.3 mmol/L (3.5-5.1); Sodium 136 mmol/L (136-145); Triglycerides 109 mg/dL (Less than 150)
[2018-10-14] MEDS: Nitroglycerin 2% Ointment 1 INCH/1 GM Packet TOP SCH ×2 (06:20→14:52)
[2018-10-14] MEDS: Furosemide 40 MG TAB PO SCH (08:20)
[2018-10-14] MEDS: Potassium Chloride 20 MEQ TAB PO SCH ×2 (08:20→20:19)
[2018-10-14] MEDS: Aspirin 81 mg Enteric Coated Tablet PO SCH (08:20)
[2018-10-14] MEDS: Metoprolol Tartrate 25 MG TAB PO SCH ×2 (08:21→20:20)
[2018-10-14] MEDS: Apixaban 2.5 MG TAB PO SCH ×2 (08:21→20:20)
[2018-10-14] MEDS: Amiodarone 200 MG TAB PO SCH (08:21)
[2018-10-14] MEDS ORDERED: Digoxin 0.125 MG TAB PO SCH (09:00)
[2018-10-14] MEDS ORDERED: Polyethylene Glycol 3350 17 GM Packet PO PRN (11:35)
[2018-10-14] MEDS ORDERED: Bisacodyl 10 MG SUPP PR PRN (11:35)
[2018-10-14] MEDS ORDERED: Fleet Enema 133 ML BOT PR PRN (11:36)
[2018-10-14] MEDS ORDERED: Morphine 2 MG/ML SYRINGE SLOW IVP SCH (15:15)
--- NOTE | 2018-10-14 16:22 | PDOC.PN ---
- Subjective Encounter Start Date: 10/14/18 Encounter Start Time: 12:25 Mr. Trevino was seen today in follow-up of Chest pain. He does not complain of the pain he experienced yesterday. He main concern is his chronic back pain, and not getting his pain medication on time. - Objective Resuscitation Status - Order Detail: 10/13/18 08:13 Resuscitation Status Routine Resuscitation Status: FULL: Full Resuscitation MAR Reviewed: Yes Vital Signs & Weight: Vital Signs (12 hours) Temp Pulse Resp BP Pulse Ox 10/14/18 15:16 97.8 F 65 16 174/81 H 93 L 10/14/18 11:22 97.3 F L 61 24 H 157/76 H 97 10/14/18 08:21 60 10/14/18 07:03 97.6 F 61 16 148/78 H 96 10/14/18 04:21 97.9 F 60 12 142/71 H 95 Weight Weight 116 lb 6.4 oz I&O: 10/13/18 10/14/18 10/15/18 06:59 06:59 06:59 Intake Total 1080 Output Total 1675 100 Balance -595 -100 Result Diagrams: 10/14/18 04:17 10/14/18 04:17 Phys Exam - Physical Examination HEENT: PERRLA, sclera anicteric Respiratory: no wheezing, no rales, no rhonchi, clear to auscultation bilateral Cardiovascular: RRR, no significant murmur, no rub Gastrointestinal: soft, non-tender, no distention, positive bowel sounds Musculoskeletal: no edema, pulses present Neurological: non-focal, normal sensation, moves all 4 limbs Dx/Plan (1) Chest pain Code(s): R07.9 - CHEST PAIN, UNSPECIFIED Status: Acute (2) Anticoagulant long-term use Code(s): Z79.01 - JAIL (CURRENT) USE OF ANTICOAGULANTS Status: Chronic (3) Atrial fibrillation with controlled ventricular rate Code(s): I48.91 - UNSPECIFIED ATRIAL FIBRILLATION Status: Chronic (4) Chronic low back pain Code(s): M54.5 - LOW BACK PAIN; G89.29 - OTHER CHRONIC PAIN Status: Chronic (5) HTN (hypertension) Code(s): I10 - ESSENTIAL (PRIMARY) HYPERTENSION Status: Chronic Qualifiers: Hypertension type: essential hypertension Qualified Code(s): I10 - Essential (primary) hypertension - Plan * Chest pain- ? etiology- this has resolved. I suspect this was non-cardiac in origin * Echo results noted * HTN- blood pressure is slightly elevated but not enough to change his regimen * AFIB- heart rate is controlled * Hopefully home today if no further cardiac work-up planned.
--- NOTE | 2018-10-14 18:02 | PRG ---
DATE OF SERVICE: 10/14/2018 SUBJECTIVE: Mr. Trevino feels somewhat weak and fatigued. No chest pain or pressure. OBJECTIVE: VITAL SIGNS: Blood pressure 174/81, pulse 65 and regular. LUNGS: Clear. CARDIAC: Normal S1, normal S2. Looking at the pacemaker defibrillator, he has been in atrial fibrillation for about 6 weeks. He has been off the anticoagulation due to some urinary bleeding. The patient has had some nonhealing ulcers of his lower extremities. ASSESSMENT: 1. Congestive heart failure, diastolic, somewhat decompensated with high BNP. 2. Increased troponin, chronic. 3. Had to be off Eliquis recently. PLAN: Recommend transesophageal echo and cardioversion tomorrow. Discussed risks including injury to the mouth and the esophagus, stroke. He understands and wishes to proceed. The patient clinically was doing much better when he was in normal sinus rhythm. Job ID: [id number]
[2018-10-14] MEDS: Atorvastatin Calcium 40 MG TAB PO SCH (20:19)
[2018-10-15] MEDS: HYDROcodone/Acetaminophen 10/325 mg Tablet PO PRN ×2 (04:23→12:23)
[2018-10-15] MEDS ORDERED: Ketamine 50 MG/ML (10ML VIAL) ONE ×2 (07:10→07:55)
[2018-10-15] MEDS ORDERED: Propofol 500 MG/50 ML VIAL ONE (07:11)
--- NOTE | 2018-10-15 10:14 | OP ---
DATE OF PROCEDURE: 10/15/2018 PROCEDURE PERFORMED: Cardioversion. DESCRIPTION OF PROCEDURE: The patient was brought to the post cath area in the fasting state. He was sedated by anesthesia, given 200 joules direct current energy. It was not clear that the patient was in sinus rhythm. He was still sedated. A 300-joule dose was given synchronized energy. The rhythm is regular. There is no obvious P-waves. It was not completely clear due to some fibrillation. There is no any evidence of thrombus on the transesophageal echo. We will send the patient upstairs and check the defibrillator interrogation. If he remains in atrial fibrillation, we consider increasing the amiodarone dose and bring him back for another attempted cardioversion in a few weeks. Unfortunately, the pacemaker representatives were not available during this procedure. Job ID: [id number]
[2018-10-15] MEDS: Apixaban 2.5 MG TAB PO SCH (12:23)
[2018-10-15] MEDS: Aspirin 81 mg Enteric Coated Tablet PO SCH (12:24)
[2018-10-15] MEDS: Potassium Chloride 20 MEQ TAB PO SCH (12:24)
[2018-10-15] MEDS: Amiodarone 200 MG TAB PO SCH (12:25)
[2018-10-15] MEDS: Metoprolol Tartrate 25 MG TAB PO SCH (12:25)
[2018-10-15] MEDS: Furosemide 40 MG TAB PO SCH (12:25)
[2018-10-15 13:32] LABS: Hemoglobin 15.2 g/dL (14.0-18.0); Platelet Count 106 thou/uL (130-400)
--- NOTE | 2018-10-15 13:39 | PDOC.PN ---
- Subjective Encounter Start Date: 10/15/18 Encounter Start Time: 13:37 Mr. Trevino was seen today in follow-up of AFIB. He does not have any new complaints this morning. - Objective Resuscitation Status - Order Detail: 10/13/18 08:13 Resuscitation Status Routine Resuscitation Status: FULL: Full Resuscitation MAR Reviewed: Yes Vital Signs & Weight: Vital Signs (12 hours) Temp Pulse Resp BP Pulse Ox 10/15/18 12:02 97.5 F L 60 12 148/70 H 93 L 10/15/18 07:14 98.2 F 63 20 157/81 H 92 L 10/15/18 07:00 92 L 10/15/18 03:00 98.3 F 60 20 131/64 94 L Weight Weight 118 lb 1.6 oz I&O: 10/14/18 10/15/18 10/16/18 06:59 06:59 06:59 Intake Total 1080 980 150 Output Total 1675 875 Balance -595 105 150 Result Diagrams: 10/15/18 13:09 10/14/18 04:17 Phys Exam - Physical Examination HEENT: PERRLA Respiratory: no wheezing, no rales, no rhonchi, clear to auscultation bilateral Cardiovascular: RRR, no significant murmur, no rub Gastrointestinal: soft, non-tender, no distention, positive bowel sounds Musculoskeletal: no edema, pulses present Dx/Plan (1) Chest pain Code(s): R07.9 - CHEST PAIN, UNSPECIFIED Status: Acute (2) Anticoagulant long-term use Code(s): Z79.01 - ANTICHECKING IRON WORKER (CURRENT) USE OF ANTICOAGULANTS Status: Chronic (3) Atrial fibrillation with controlled ventricular rate Code(s): I48.91 - UNSPECIFIED ATRIAL FIBRILLATION Status: Chronic (4) Chronic low back pain Code(s): M54.5 - LOW BACK PAIN; G89.29 - OTHER CHRONIC PAIN Status: Chronic (5) HTN (hypertension) Code(s): I10 - ESSENTIAL (PRIMARY) HYPERTENSION Status: Chronic Qualifiers: Hypertension type: essential hypertension Qualified Code(s): I10 - Essential (primary) hypertension - Plan * Chest pain- this may be related to AFIB. * He is s/p cardioversion * Stable for discharge home.
--- NOTE | 2018-10-15 14:12 | PRG ---
DATE OF SERVICE: SUBJECTIVE: Mr. Trevino underwent cardioversion today, done successfully. He feels well. OBJECTIVE: VITAL SIGNS: Blood pressure 148/70, and pulse 60, it is regular. LUNGS: Clear. CARDIAC: Normal S1 and S2. ASSESSMENT: 1. Congestive heart failure, diastolic, better compensated. 2. Chronically elevated troponin levels. 3. Atrial fibrillation, back in sinus rhythm, following cardioversion. PLAN: 1. He is on amiodarone. 2. Low-dose beta-estiven. 3. He is on Eliquis 2.5 mg twice a day. 4. We will ask him to come back and see us in about a month. Transesophageal echo showed no evidence of any thrombus. Job ID: [id number]
[2018-10-15] MEDS ORDERED: PROPOFOL 200 MG/20 ML VIAL ONE (14:14)
[2018-10-15] MEDS ORDERED: PHENYLEPHRINE-NS 100 MCG/ML 10 ML SYRINGE ONE (14:14)
[2018-10-15] MEDS ORDERED: Morphine 2 MG/ML SYRINGE SLOW IVP SCH (14:15)
[2018-10-15 15:39] VITALS: BP 170/80; TEMP 98.1
--- NOTE | 2018-10-16 09:26 | OP ---
DATE OF PROCEDURE: 10/15/2018 PROCEDURE PERFORMED: Transesophageal echocardiogram. INDICATION: An 87-year-old gentleman with paroxysmal atrial fibrillation. DESCRIPTION OF PROCEDURE: The patient was taken to the PACU. The patient was sedated by Anesthesiology. A transesophageal probe was placed into the distal esophagus and stomach. Echocardiograms were obtained. The transesophageal probe was removed. FINDINGS: 1. Normal left ventricular systolic function. 2. The aortic valve leaflets are thickened. 3. [id number] mitral regurgitation. 4. Moderate tricuspid regurgitation. 5. Mild aortic regurgitation. 6. No thrombus noted in the left atrium or left atrial appendage. 7. Pacemaker wire is noted in the right ventricle. 8. Atherosclerotic debris in the descending aorta. IMPRESSION: No formed thrombus in the left atrium or left atrial appendage. Please call my office. Job ID: [id number]
--- NOTE | 2018-10-16 10:44 | DIS ---
DATE OF ADMISSION: 10/14/2018 DATE OF DISCHARGE: 10/15/2018 PRIMARY CARE PHYSICIAN: Dr. Keith Garsia. DISCHARGE DISPOSITION: Home. PRIMARY DISCHARGE DIAGNOSES: 1. Chest pain. 2. Atrial fibrillation status post cardioversion. 3. Coronary artery disease. 4. Hypertension. 5. Chronic low back pain. DISCHARGE MEDICATIONS: Include; 1. Protonix 40 mg twice a day. 2. Eliquis 2.5 mg twice daily. 3. Tramadol 50 mg q.4 hours as needed. 4. Demadex 20 mg twice a day. 5. Restoril 15 mg p.o. q.h.s. 6. K-Dur 20 mEq twice a day. 7. Movantik 12.5 mg daily. 8. Metoprolol-XL 12.5 mg q.h.s. 9. [place] 10/325 q.4 hours as needed. 10. Digoxin 0.125 mg on Sunday, Sunday, and Sunday. 11. Lipitor 20 mg q.h.s. PROCEDURES DONE DURING THE ADMISSION: The patient had a CT scan of the abdomen and pelvis, showing no acute process. The patient also had an echocardiogram, and the ejection fraction was estimated at 60% to 65%. There was atrial fibrillation during the study. There was moderate concentric left ventricular hypertrophy, right ventricular systolic pressure was 42 mmHg, and there is moderate mitral regurgitation. CODE STATUS: Full code. ALLERGIES: TO IODINE CONTAINING PRODUCTS, OFLOXACIN, PENICILLIN, AND PENTAZOCINE. HOSPITAL COURSE: Mr. Trevino is a pleasant 87-year-old gentleman, who presented to the emergency room complaining of pain in his chest. The description of which was fairly atypical. He was brought in to the hospital and ruled out. A CT scan of the abdomen was done, which did not show any significant abnormality in the abdomen. Due to some characteristics of some abdominal pain, he also had an echocardiogram which did not show any significant change as well. He has been persistently in atrial fibrillation and he is known to not tolerate this well. For this reason, Dr. Haq performed a cardioversion. He is currently now in sinus rhythm and has no new complaints. He has been placed back on Eliquis and can be discharged home on the same medications with close outpatient followup. Job ID: [id number]
== END 2018-10-15 16:29 | disposition home or self-care (01) | DRG 309 ==
LOC: ERS 06:35 → 2SW 07:56 → OBSVTOIN 10-14 17:46
PROVIDERS: ADMIT Internal Medicine; ATTEND Internal Medicine
PROC: 5A2204Z Restoration of Cardiac Rhythm, Single (ICD-10-PCS; principal; 2018-10-15)
DX: I48.91 Unspecified atrial fibrillation (principal); I50.32 Chronic diastolic (congestive) heart failure; I11.0 Hypertensive heart disease with heart failure; I25.10 Atherosclerotic heart disease of native coronary artery without angina pectoris; M54.5 Low back pain; G89.29 Other chronic pain; Z90.49 Acquired absence of other specified parts of digestive tract; Z95.5 Presence of coronary angioplasty implant and graft; Z85.46 Personal history of malignant neoplasm of prostate; Z88.0 Allergy status to penicillin; Z91.041 Radiographic dye allergy status; Z87.891 Personal history of nicotine dependence; Z79.899 Other long term (current) drug therapy; Z79.01 Long term (current) use of anticoagulants
CPT/HCPCS: 36415; 74176; 80048; 80053; 80061; 81003; 82553; 82565; 83690; 83735; 83880; 84484; 85014; 85018; 85025; 85049; 92960; 93005; 93306; 93312; 94760; 96374; J1940; J2270; J2704

== ENCOUNTER 2018-10-17 13:36 | Outpatient (CLI) | payer MEDICARE ==
--- NOTE | 2018-10-18 00:13 | HP ---
HISTORY OF PRESENT ILLNESS: Mr. Marshall Trevino is a very pleasant 87-year-old accompanied by his daughter, who [facility] for evaluation of 2 ulcerations of the lower extremities. The patient has 1 ulceration over the right lower leg and 1 ulceration over the left lower leg. The patient was referred to the [facility]ound [facility] by Dr. Vegas on 10/08/2018. The patient and his daughter state that Mr. Trevino had swelling of his lower extremities and the ulcerations were draining when he underwent aortogram with lower extremity runoff by Dr. Vegas approximately 1 month ago. The patient states that his wounds have markedly improved with dressing changes by Home Health. PAST MEDICAL HISTORY: 1. Coronary artery disease. 2. Dilated cardiomyopathy. 3. Hypertension. 4. Prostate carcinoma, status post radiation therapy and surgery. 5. Atrial fibrillation. 6. Chronic low back pain. 7. Gastroesophageal reflux disease. 8. Valvular heart disease. 9. Renal insufficiency. 10. History of GI bleeding. PAST SURGICAL HISTORY: 1. Coronary artery bypass grafting. 2. AICD placement x2. 3. Neck surgery. 4. Bowel resection. 5. Appendectomy. 6. Prostate surgery. 7. Hernia surgery x3. 8. Vasectomy. 9. Back surgery x8. 10. Cataract surgery. 11. Tonsillectomy. 12. Cholecystectomy. MEDICATIONS: 1. Atorvastatin. 2. Calcium. 3. Vitamin D. 4. Digoxin. 5. Eliquis. 6. Hydrocodone. 7. Metoprolol. 8. Movantik. 9. Ondansetron. 10. Pantoprazole. 11. Polyethylene glycol. 12. Potassium. 13. Temazepam. 14. Tramadol. ALLERGIES: PENICILLIN, IODINE, PENTAZOCINE, OFLOXACIN. SOCIAL HISTORY: Social history is significant for tobacco use of 1 to 2 packs of cigarettes per day for 4 years. The patient admits to only rare consumption of alcohol in the past. FAMILY HISTORY: Family history is significant for coronary artery disease. The patient's father and his son were both diagnosed with coronary artery disease. Family history is also significant for diabetes mellitus. The patient states that his maternal grandfather was diagnosed with diabetes mellitus. PHYSICAL EXAMINATION: VITAL SIGNS: Temperature 97.7, pulse 68, respirations 17, blood pressure 144/71. GENERAL: An 87-year-old gentleman, lying on table in examination room, in no acute distress. HEENT: Normocephalic and atraumatic. NECK: No nuchal rigidity. CHEST: Clear to auscultation. CV: Regular rate and rhythm. ABDOMEN: Soft. EXTREMITIES: An ulceration over the right medial lower leg is present, which measures approximately 1.0 x 0.4 cm. The ulceration is covered by dry stable eschar in its entirety. No erythema of the skin surrounding the wound is present. No maceration of the skin of the periwound is noted. A dorsalis pedis pulse is palpable on the right. Snri-[id number] edema of the right foot and lower leg is present on exam today. An ulceration of the left anterior lower leg is present, which measures approximately 0.5 x 0.4 cm. This ulceration is also covered in its entirety by dry stable eschar. No erythema of the skin surrounding the wound is present. No maceration of the skin of the periwound is noted. A dorsalis pedis pulse is palpable on the left. [id number]-js-tqywlzqd edema of the left foot and lower leg is present on exam today. NEUROLOGIC: Grossly nonfocal. ASSESSMENT AND PLAN: 1. 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 As stated above, the ulcerations are now both associated with dry stable eschar. Orders will be transmitted to Home Health for the present dressing changes to be continued for the next 4 to 8 weeks. Triamcinolone cream 0.1% is to be applied to the skin of the right and left lower legs up to b.i.d. as needed. The patient has also been given information regarding in-home lymphedema therapy with a pneumatic pump. The patient has been advised to begin using stockings knee-high over the right and left lower extremities once the compression wraps are discontinued by Home Health. The patient and his daughter understand and are in agreement with the preceding treatment plan. 2. Coronary artery disease. 3. Dilated cardiomyopathy. 4. Hypertension. 5. Prostate carcinoma, status post radiation therapy and surgery. 6. Atrial fibrillation. 7. Chronic low back pain. 8. Gastroesophageal reflux disease. 9. Valvular heart disease. 10. Renal insufficiency. 11. History of gastrointestinal bleeding. Job ID: [id number]
== END 2018-10-17 13:37 | disposition home or self-care (01) ==
LOC: WCC 13:36
PROVIDERS: ATTEND Family Medicine
DX: L98.499 Non-pressure chronic ulcer of skin of other sites with unspecified severity (principal)
CPT/HCPCS: 97139; 97602; G0463; 99203